=== PATIENT | male | born 1940 | race Caucasian/White ===

== ENCOUNTER 2018-08-29 12:36 | Inpatient (IN) | payer MEDICARE, OTHER ==
[2018-08-29] MEDS ORDERED: Sodium Chloride 0.9% 1,000 ML IV SCH ×2 (12:45→15:15)
[2018-08-29 12:55] VITALS: BMI 27.6
[2018-08-29 12:57] LABS: BASO # 0.1 K/uL (0.0-0.2); BASO % 0.6 % (0.0-2.0); EOS % 0.2 % (0.0-4.0); LYMPH # 1.1 K/uL (1.0-4.3); LYMPH % 8.4 % (20.0-40.0); MEAN CELL VOLUME 90.9 fL (80.0-94.0); MEAN CORPUSCULAR HEMOGLOBIN 30.1 pg (27.0-31.0); MEAN CORPUSCULAR HGB CONC 33.1 g/dL (33.0-37.0); MEAN PLATELET VOLUME 8.2 fL (7.2-11.7); MONO # 1.7 K/uL (0.0-0.8); MONO % 12.3 % (0.0-10.0); NEUT # 10.7 K/uL (1.8-7.0); NEUT % 78.5 % (50.0-75.0); PLATELET COUNT 254 K/uL (130-400); RBC 3.98 Mil/uL (4.40-5.90); WHITE BLOOD COUNT 13.7 K/uL (4.8-10.8)
[2018-08-29] MEDS ORDERED: Iodixanol 320 MG/ML 100 ML BOTTLE IV ONE (13:01)
[2018-08-29 13:06] LABS: INR 1.2; PROTHROMBIN TIME 12.8 SECONDS (9.7-12.2)
--- NOTE | 2018-08-29 13:07 | CT ---
Date of service: 08/29/2018 PROCEDURE: CT HEAD WITHOUT CONTRAST. HISTORY: Code Stroke COMPARISON: None available. TECHNIQUE: Axial computed tomography images were obtained through the head/brain without intravenous contrast. Radiation dose: Total exam DLP = 1142.28 mGy-cm. This CT exam was performed using one or more of the following dose reduction techniques: Automated exposure control, adjustment of the mA and/or kV according to patient size, and/or use of iterative reconstruction technique. FINDINGS: HEMORRHAGE: No intracranial hemorrhage. 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 There is no mass, mass effect or abnormal extra-axial fluid collection. The midline sagittal structures are normal.There are coarse atherosclerotic calcifications in the cavernous carotid and vertebral arteries. VENTRICLES: There is moderate age-related global parenchymal volume loss and proportionate enlargement of the ventricles and cortical sulci. CALVARIUM: There is no calvarial fracture or extracranial soft tissue swelling. PARANASAL SINUSES: There is a retention cyst/polyp in the left maxillary sinus. The remaining included paranasal sinuses are clear. MASTOID AIR CELLS: Predominantly clear. OTHER FINDINGS: None. IMPRESSION: No acute intracranial abnormality.If there is a persistent focal neurologic deficit and an ongoing clinical concern for acute infarction, an MRI of the brain without intravenous contrast would be a more sensitive modality for evaluation of hyperacute/acute ischemic infarction. 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 Important findings were discussed with Dr. Jb Gimenez in the ER on 08/29/2018 at 1:00 p.m.
[2018-08-29 13:10] LABS: ALB/GLOB RATIO 1.2 (1.0-2.1); ALBUMIN 4.3 g/dL (3.5-5.0); ALT/SGPT 13 U/L (21-72); AST/SGOT 16 U/L (17-59); BLOOD UREA NITROGEN 23 mg/dL (9-20); CALCIUM 9.2 mg/dl (8.6-10.4); GFR NON-AFRICAN AMERICAN > 60; HDL CHOLESTEROL 45 mg/dL (30-70)
[2018-08-29 13:20] LABS: BANDS 1 % (0-2); LDL CHOLESTEROL 145 mg/dL (0-129); LYMPHOCYTE 10 % (20-40); MONOCYTE 12 % (0-10); NEUTROPHIL 77 % (50-75); PLATELET ESTIMATE NORMAL (NORMAL); TOTAL CELLS COUNTED 100
[2018-08-29 13:21] LABS: LARGE PLATELETS PRESENT
[2018-08-29] MEDS ORDERED: Sodium Chloride 0.9% 1,000 ML ONE (13:21)
--- NOTE | 2018-08-29 13:53 | CT ---
Date of service: 08/29/2018 PROCEDURE: CTA HEAD AND NECK WITH CONTRAST HISTORY: Weakness COMPARISON: None available. TECHNIQUE: Initial noncontrast head CT was performed. Subsequently, CT angiogram of the head and neck were performed after the intravenous administration of 80 mL of Omnipaque 350. Contiguous 1.5mm thick images were obtained in the axial plane of the neck. 2-D coronal and sagittal MPR images were obtained. Imaging postprocessing was performed with 3-D images also obtained. A delayed contrast head CT was also obtained. This CT exam was performed using one or more of the following dose reduction techniques: Automated exposure control, adjustment of the mA and/or kV according to patient size, and/or use of iterative reconstruction technique. Contrast dose: 100 mL Visipaque 320 Radiation dose: Total exam DLP = 718.48 mGy-cm. FINDINGS: HEAD: There are coarse atherosclerotic calcifications in the cavernous carotid segments of the internal carotid arteries and the supraclinoid segments. Right: The intracranial internal carotid artery, and anterior and middle cerebral arteries are widely patent. There is early bifurcation of the M1 segment. Left: The intracranial internal carotid artery, and anterior and middle cerebral arteries are widely patent. Posterior circulation: The visualized intracranial vertebral arteries, basilar artery and posterior cerebral arteries are widely patent. There is no endoluminal filling defect to suggest thrombus. There is no intracranial saccular aneurysm. NECK: There is a three vessel aortic arch. There is no stenosis at the origins of the great vessels at the level of the aortic arch. There are mild atherosclerotic calcifications in the proximal left internal carotid artery and at the right external carotid artery origin. Right Carotid: On the right, the common carotid, internal carotid and external carotid arteries are widely patent. There is no hemodynamically significant stenosis in the internal carotid artery by NASCET criteria. Left Carotid: On the left, the common carotid, internal carotid and external carotid arteries are widely patent. There is no hemodynamically significant stenosis in the internal carotid artery by NASCET criteria. The vertebral arteries are widely patent. The left vertebral artery is hypoplastic, an anatomic variant. The visualized soft tissues of the neck are normal. The visualized brain and cervical spine are within normal limits. The lung apices are clear. IMPRESSION: 1. No evidence of endoluminal thrombus,occlusion or definite significant stenosis in the intracranial arteries. 2. No evidence of hemodynamically significant stenosis in the internal carotid arteries. 3. Patent bilateral vertebral arteries.
--- NOTE | 2018-08-29 13:54 | RAD ---
Date of service: 08/29/2018 HISTORY: Code Stroke COMPARISON: No prior. FINDINGS: LUNGS: There are low lung volumes. The lungs are clear. PLEURA: No pleural effusions or pneumothorax. CARDIOVASCULAR: The heart is normal in size. No aortic atherosclerotic calcifications present. OSSEOUS STRUCTURES: Within normal limits for the patient's age. VISUALIZED UPPER ABDOMEN: Normal. OTHER FINDINGS: None. IMPRESSION: No active pulmonary disease.
[2018-08-29] MEDS ORDERED: Aspirin 325 mg EC Tablets PO STA (13:57)
--- NOTE | 2018-08-29 13:59 | C.PDOC ---
Time Seen by Provider: 08/29/18 12:45 Chief Complaint (Nursing): Weakness/Neurological Deficit Past Medical History Vital Signs: Last Vital Signs Temp 97.6 F 08/29/18 12:42 Pulse 82 08/29/18 13:52 Resp 24 08/29/18 13:52 BP 125/62 08/29/18 13:52 Pulse Ox 99 08/29/18 13:52 - Medical History PMH: Alzheimer's Disease, Dementia - Social History Hx Alcohol Use: No Hx Substance Use: No - Immunization History Hx Tetanus Toxoid Vaccination: No Hx Influenza Vaccination: No Hx Pneumococcal Vaccination: No ED Course And Treatment - Laboratory Results Result Diagrams: 08/29/18 12:50 08/29/18 12:50 Lab Results: PT 12.8 SECONDS (9.7-12.2) H 08/29/18 12:50 INR 1.2 08/29/18 12:50 APTT 31 SECONDS (21-34) 08/29/18 12:50 Troponin I 0.1100 ng/mL (0.00-0.120) 08/29/18 12:50 Total Bilirubin 0.9 mg/dL (0.2-1.3) 08/29/18 12:50 AST 16 U/L (17-59) L 08/29/18 12:50 ALT 13 U/L (21-72) L 08/29/18 12:50 Alkaline Phosphatase 84 U/L (38-126) 08/29/18 12:50 Total Protein 7.7 g/dL (6.3-8.3) 08/29/18 12:50 Albumin 4.3 g/dL (3.5-5.0) 08/29/18 12:50 Globulin 3.5 gm/dL (2.2-3.9) 08/29/18 12:50 Albumin/Globulin Ratio 1.2 (1.0-2.1) 08/29/18 12:50 O2 Sat by Pulse Oximetry: 99 Disposition Discussed With : Holli Mesa Doctor Will See Patient In The: Hospital Counseled Patient/Family Regarding: Studies Performed, Diagnosis - Disposition Disposition: HOSPITALIZED Disposition Time: 13:59 Condition: FAIR Forms: [facility] (Azeri) - Clinical Impression Clinical Impression: CVA (cerebral vascular accident)
--- NOTE | 2018-08-29 14:00 | C.PDOC ---
History Of Present Illness 77 y/o male brought in by EMS for evaluation of right-sided weakness. Code stroke was called upon arrival. Patient has PMHx of dementia and is unable to contribute to history. As per patient went to bed at 1030 last night. Aroun d 3:00am attempted to wake patient but was unable to. At 1030am patient was unable to get out of bed, and was moved from bed to chair by son. At that time, family noted apparent right sided weakness and EMS was called. No other complaints offered. Time Seen by Provider: 08/29/18 12:45 Chief Complaint (Nursing): Weakness/Neurological Deficit History Per: Patient History/Exam Limitations: clinical condition (dementia) Onset/Duration Of Symptoms: Hrs (> 12 hours) Current Symptoms Are (Timing): Still Present Additional History Per: EMS, Family - Symptoms Of CVA Character Of Deficits: Right: Weakness Past Medical History Reviewed: Historical Data, Nursing Documentation, Vital Signs Vital Signs: Last Vital Signs Temp 97.6 F 08/29/18 12:42 Pulse 82 08/29/18 13:52 Resp 24 08/29/18 13:52 BP 125/62 08/29/18 13:52 Pulse Ox 99 08/29/18 13:52 - Medical History PMH: Alzheimer's Disease, Dementia Family History: States: Unknown Family Hx - Social History Hx Alcohol Use: No Hx Substance Use: No - Immunization History Hx Tetanus Toxoid Vaccination: No Hx Influenza Vaccination: No Hx Pneumococcal Vaccination: No Review Of Systems Review Of Systems: ROS cannot be obtained secondary to pt's inabilty to answer questions. Neurological: Positive for: Weakness (right-sided) Physical Exam - Physical Exam Appears: No Acute Distress, Confused, Other (Verbal, responding to some questions) Skin: Warm, Dry Head: Atraumatic, Normacephalic Eye(s): bilateral: Normal Inspection, PERRL, EOMI Neck: Normal ROM Chest: Symmetrical Cardiovascular: Rhythm Regular, No Murmur Respiratory: Normal Breath Sounds, No Accessory Muscle Use, No Rhonchi, No Wheezing Gastrointestinal/Abdominal: Soft, No Tenderness, No Distention Extremity: Right: Other (Right leg weakness, able to move the right leg with g ravity), Bilateral: Atraumatic Pulses: Left Dorsalis Pedis: Normal, Right Dorsalis Pedis: Normal Neurological/Psych: Other (AAOx1) ED Course And Treatment - Laboratory Results Result Diagrams: 08/29/18 12:50 08/29/18 12:50 Lab Results: PT 12.8 SECONDS (9.7-12.2) H 08/29/18 12:50 INR 1.2 08/29/18 12:50 APTT 31 SECONDS (21-34) 08/29/18 12:50 Troponin I 0.1100 ng/mL (0.00-0.120) 08/29/18 12:50 Total Bilirubin 0.9 mg/dL (0.2-1.3) 08/29/18 12:50 AST 16 U/L (17-59) L 08/29/18 12:50 ALT 13 U/L (21-72) L 08/29/18 12:50 Alkaline Phosphatase 84 U/L (38-126) 08/29/18 12:50 Total Protein 7.7 g/dL (6.3-8.3) 08/29/18 12:50 Albumin 4.3 g/dL (3.5-5.0) 08/29/18 12:50 Globulin 3.5 gm/dL (2.2-3.9) 08/29/18 12:50 Albumin/Globulin Ratio 1.2 (1.0-2.1) 08/29/18 12:50 ECG: Interpreted By Me ECG Rhythm: Sinus Rhythm Interpretation Of ECG: Q wave in leads 3 and avF, no ST or T wave abnormalities Rate From EC O2 Sat by Pulse Oximetry: 99 (RA) Pulse Ox Interpretation: Normal - CT Scan/US Head CT Other Rad Studies (CT/US): Read By Radiologist, Radiology Report Reviewed CT/US Interpretation: Accession No. : [id number]. Patient Name / ID : PARAMJIT MERLOS / [id number]. Exam Date : 08/29/2018 12:49:44 ( Approved ). Study Comment : Sex / Age : M / 77Y. Creator : Shannan Pabon. Dictator : Colleen Fernandez MD. Last Model Maker : [employer]sembl[employer] Developer Prover : Colleen Fernandez MD. Approver2 : Report Date : 08/29/2018 12:54:57. My Comment : . Date of service: 08/29/2018. PROCEDURE: CT HEAD WITHOUT CONTRAST. HISTORY: Code Stroke. COMPARISON: None available. TECHNIQUE: Axial computed tomography images were obtained through the head/brain without intravenous contrast. Radiation dose: Total exam DLP = 1142.28 mGy-cm. This CT exam was performed using one or more of the following dose reduction techniques: Automated exposure control, adjustment of the mA and/or kV according to patient size, and/or use of iterative reconstruction technique. FINDINGS: HEMORRHAGE: No intracranial hemorrhage. 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 There is no mass, mass effect or abnormal extra-axial fluid collection. The midline sagittal structures are normal.There are coarse atherosclerotic calcifications in the cavernous carotid and vertebral arteries. VENTRICLES: There is moderate age-related global parenchymal volume loss and proportionate enlargement of the ventricles and cortical sulci. CALVARIUM: There is no calvarial fracture or extracranial soft tissue swelling. PARANASAL SINUSES: There is a retention cyst/polyp in the left maxillary sinus. The remaining included paranasal sinuses are clear. MASTOID AIR CELLS: Predominantly clear. OTHER FINDINGS: None. IMPRESSION: No acute intracranial abnormality.If there is a persistent focal neurologic deficit and an ongoing clinical concern for acute infarction, an MRI of the brain without intravenous contrast would be a more sensitive modality for evaluation of hyperacute/acute ischemic infarction. 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 Important findings were discussed with Dr. Jb Gimenez in the ER on 08/29/2018 at. 1:00 p.m. NIHSS Stroke Scale 2 - Date/Time Evaluation Performed Date Performed: 08/29/18 Time Performed: 12:45 When Was NIHSS Performed: Code Stroke - How Severe is the Stroke Level of Consciousness: 0=Alert LOC to Questions: 0=Both comments correct LOC to commands: 0=Obeys both correctly Visual: 0=No visual loss Facial: 0=Normal Motor Arm - Left: 0=No drift Motor Arm - Right: 0=No drift Motor Leg - Left: 0=No drift Motor Leg - Right: 2=Falls before 5 sec Limb Ataxia: 0=Absent Sensory: 0=Normal Best Language: 0=No aphasia Dysarthia: 0=Normal articulation Extinction & Inattention (Neglect): 0=Normal, no object rTPA Inclusion/Exclusion - Refusal of Treatment Patient Refused Treatment: No - Inclusion Criteria for Altepase Patient is 18 years or Older: Yes The Clinical Diagnosis of Ischemic Stroke That is Causing a Potentially Disabling Neurological Deficit: Yes Time of Onset is Well Established to be Less Than 270 Minute Before Treatment Would Begin: No Risk/Benefit Discussed With Patient/Family Member Present: No Medical Decision Making Medical Decision Making: Patient required my immediate attention and was seen on arrival. Impression: CVA NIH SS: [address] Crawford, states pt is outside of window for TPA. Initial Plan: CT Head, CTA, labs, EKG, and CXR ordered. Patient given 325 mg Aspirin and started on IV fluids. Disposition Discussed With : Holli Mesa Doctor Will See Patient In The: Hospital Counseled Patient/Family Regarding: Diagnosis - Disposition Disposition: HOSPITALIZED Disposition Time: 13:58 Condition: FAIR - POA Present On Arrival: None Core Measure Indicators: Code Stroke - Clinical Impression Clinical Impression: CVA (cerebral vascular accident) - Scribe Statement The provider has reviewed the documentation as recorded by the Tiffanie Banks Provider Attestation: All medical record entries made by the Saraiibantonio were at my direction and personally dictated by me. I have reviewed the chart and agree that the record accurately reflects my personal performance of the history, physical exam, medical decision making, and the department course for this patient. I have also personally directed, reviewed, and agree with the discharge instructions and disposition.
[2018-08-29] MEDS ORDERED: Aspirin 325 mg EC Tablets PO ONE (14:16)
[2018-08-29] MEDS ORDERED: (Novolin R) Insulin Human Regular 100 units/ml vial IVP ONE (14:29)
--- NOTE | 2018-08-29 14:53 | CP.PCM.HP ---
History of Present Illness - History of Present Illness History of Present Illness: Patient is a 77 year old male with a past medical history of diabetes and Alzheimer dementia, who presents to the hospital with right sided weakness, slurred speech and right facial droop. The history is provided by and daughter who are at bedside due to patients dementia. Per the family, the patient had difficulty sleeping last night, then the noticed slurred speech and facial droop around 6am this morning. The tried to get the patient out of bed at 930am and the patient wasn't able to get out of bed due to right sided arm and leg weakness. Per the , the patients arm movement improved around 1030 am and after that is when they came to the hospital. Review of systems limited due to patients dementia. Patient is oriented to person, but not place or time. PMHx: DM, Alzheimer dementia SurgHx: none FamHx: Brother-[place] (in his 40s) SocHx: former smoker (quit 30 years ago, formerly smoked 1 pk/day for 15 years); rare etoh use (family occasions); denies drug use; lives with his , Tonia. Daughter: Noni ([phone]); Came from [place] one week ago. Allergies: NKDA Medications: Metformin 1000mg PO daily, Memantine 10mg daily, Donepizil 10mg daily, lexapro 20mg po daily, somazina 500mg daily; per the pharmacy, patient was prescribed plavix 75mg po daily yesterday by Dr Gallegos. (Per the family, t he patient previously took plavix daily but stopped it many months ago) Present on Admission - Present on Admission Any Indicators Present on Admission: Yes History of Uncontrolled Diabetes: Yes Review of Systems - Review of Systems Systems not reviewed;Unavailable: Dementia - EENT Eyes: As Per HPI - Cardiovascular Cardiovascular: As Per HPI - Respiratory Respiratory: As Per HPI - Gastrointestinal Gastrointestinal: As Per HPI - Genitourinary Genitourinary: As Per HPI - Reproductive: Male Reproductive:Male: As Per HPI - Musculoskeletal Musculoskeletal: As Per HPI - Integumentary Integumentary: As Per HPI Past Patient History - Infectious Disease Hx of Infectious Diseases: None - Past Social History Smoking Status: Unknown If Ever Smoked - NEUROLOGICAL Hx Alzheimer's Disease: Yes Hx Dementia: Yes - ENDOCRINE/METABOLIC Hx Diabetes Mellitus Type 2: Yes - PSYCHIATRIC Hx Substance Use: No - ANESTHESIA Hx Anesthesia: No Meds Allergies/Adverse Reactions: Allergies Allergy/AdvReac Type Severity Reaction Status Date / Time No Known Allergies Allergy Verified 08/29/18 12:38 Physical Exam - Constitutional Appears: No Acute Distress - Head Exam Head Exam: ATRAUMATIC - Eye Exam Eye Exam: EOMI Pupil Exam: Miosis - ENT Exam ENT Exam: Mucous Membranes Dry - Respiratory Exam Respiratory Exam: Decreased Breath Sounds, NORMAL BREATHING PATTERN. absent: Clear to Auscultation Bilateral, Rhonchi, Wheezes - Cardiovascular Exam Cardiovascular Exam: REGULAR RHYTHM, +S1, +S2 - GI/Abdominal Exam GI & Abdominal Exam: Normal Bowel Sounds, Soft. absent: Distended, Firm, Guarding - Extremities Exam Extremities exam: Positive for: pedal pulses present (diminished). Negative for: pedal edema, tenderness - Neurological Exam Additional comments: Patient unable to follow all commands due to dementia and lack of concentration. 5/5 remotely operated vehicle strength, upper and lower extremity strength. Negative Babinski sign. Sensation intact bilaterally. Slight right sided facial droop. - Psychiatric Exam Psychiatric exam: Normal Mood - Skin Skin Exam: Dry, Normal Color, Warm Results - Vital Signs Recent Vital Signs: Last Vital Signs Temp 97.6 F 08/29/18 12:42 Pulse 82 08/29/18 13:52 Resp 24 08/29/18 13:52 BP 125/62 08/29/18 13:52 Pulse Ox 99 08/29/18 14:08 - Labs Result Diagrams: 08/29/18 12:50 08/29/18 12:50 Labs: Laboratory Results - last 24 hr 08/29/18 08/29/18 08/29/18 12:40 12:50 12:50 WBC 13.7 H RBC 3.98 L Hgb 12.0 Hct 36.2 MCV 90.9 MCH 30.1 MCHC 33.1 RDW 14.0 Plt Count 254 MPV 8.2 Neut % (Auto) 78.5 H Lymph % (Auto) 8.4 L Pope % (Auto) 12.3 H Eos % (Auto) 0.2 Baso % (Auto) 0.6 Neut # (Auto) 10.7 H Lymph # (Auto) 1.1 Pope # (Auto) 1.7 H Eos # (Auto) 0.0 Baso # (Auto) 0.1 Neutrophils % (Manual) 77 H Band Neutrophils % 1 Lymphocytes % (Manual) 10 L Monocytes % (Manual) 12 H Eosinophils % (Manual) TEST NOT PERFORMED Platelet Estimate Normal Large Platelets Present RBC Morphology Normal PT 12.8 H INR 1.2 APTT 31 Sodium Potassium Chloride Carbon Dioxide Anion Gap BUN Creatinine Est GFR ( Amer) Est GFR (Non-Af Amer) POC Glucose (mg/dL) 346 H Random Glucose Hemoglobin A1c Calcium Total Bilirubin AST ALT Alkaline Phosphatase Troponin I Total Protein Albumin Globulin Albumin/Globulin Ratio Triglycerides Cholesterol LDL Cholesterol Direct HDL Cholesterol Blood Type Antibody Screen 08/29/18 08/29/18 08/29/18 12:50 12:50 12:50 WBC RBC Hgb Hct MCV MCH MCHC RDW Plt Count MPV Neut % (Auto) Lymph % (Auto) Pope % (Auto) Eos % (Auto) Baso % (Auto) Neut # (Auto) Lymph # (Auto) Pope # (Auto) Eos # (Auto) Baso # (Auto) Neutrophils % (Manual) Band Neutrophils % Lymphocytes % (Manual) Monocytes % (Manual) Eosinophils % (Manual) Platelet Estimate Large Platelets RBC Morphology PT INR APTT Sodium 136 Potassium 3.9 Chloride 97 L Carbon Dioxide 30 Anion Gap 14 BUN 23 H Creatinine 0.9 Est GFR ( Amer) > 60 Est GFR (Non-Af Amer) > 60 POC Glucose (mg/dL) Random Glucose 322 H Hemoglobin A1c 8.0 H Calcium 9.2 Total Bilirubin 0.9 AST 16 L ALT 13 L Alkaline Phosphatase 84 Troponin I 0.1100 Total Protein 7.7 Albumin 4.3 Globulin 3.5 Albumin/Globulin Ratio 1.2 Triglycerides 135 Cholesterol 208 H LDL Cholesterol Direct 145 H HDL Cholesterol 45 Blood Type O POSITIVE Antibody Screen Negative Assessment & Plan - Assessment and Plan (Free Text) Plan: 77 year old male with a history of DM and Alzheimer's dementia, who presents to the hospital with complaints of right sided weakness, slurred speech, and facial droop. CVA vs. TIA - Right sided weakness has resolved since arriving in ED; mild facial droop still present - In ED, was given asa 325mg PO stat. Patient was not a TPA candidate. - Neurology consulted, Dr. Crawford. Help appreciated - EKG: NSR@84; qwaves in lead 3 and AVF, no ST elevations/depressions - CXR: no acute pathology - Head CT w/o contrast: No acute intracranial abnormality.If there is a persistent focal neurologic deficit and an ongoing clinical concern for acute infarction, an MRI of the brain without intravenous contrast would be a more sensitive modality for evaluation of hyperacute/acute ischemic infarction. 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 - Head/Neck CTA: No evidence of endoluminal thrombus,occlusion or definite significant stenosis in the intracranial arteries. No evidence of hemodynamically significant stenosis in the internal carotid arteries. Patent bilateral vertebral arteries. - Brain MRI: f/u - EEG: f/u - A1c: 8.0 - Lipid panel: TG 135, Chol 208, LDL 145, HDL 45 - TSH/Free T4: f/u - Medications: * Aspirin 81mg PO daily * Crestor 20mg PO HS DM - Accuchecks - Hypoglycemic protocol - A1c: 8.0 - Hold home medication: Metformin 1000mg PO daily - ISS- medium Alzheimers dementia - Home medications: Memantidine 10mg PO daily, Donepizil 10mg PO daily, Somazina 500mg PO daily Prophylaxis - DVT: Heparin 5000u SC Q12, SCDs - GI: not indicated - NPO - Swallow eval:f/u - PT/OT Case discussed with Dr. Hanna Kellogg, PGY2
--- NOTE | 2018-08-29 15:55 | CP.PCM.CON ---
History of Present Illness - History of Present Illness History of Present Illness: Neurology Consultation Note: Consult requested by Dr. Gimenez Mr. Ritchie is a 77-year-old man with a past medical history of DM and d ementia, who was found to have right side weakness and speech difficulty this morning. He was last at his baseline last night. CT head did not show acute findings, but there was a chronic left caudate lacunar infarct. CTA of the head/neck did not show any large vessel occlusion. The patient was not a candidate for IV tPA due to being outside the time window. When I saw the patient, he was improving, according to his family. He was conversant and moving his right upper extremity, but still had some weakness in his right lower extremity. Review of Systems - Review of Systems Systems not reviewed;Unavailable: Dementia Past Patient History - Infectious Disease Hx of Infectious Diseases: None - Past Social History Smoking Status: Unknown If Ever Smoked - NEUROLOGICAL Hx Alzheimer's Disease: Yes Hx Dementia: Yes - ENDOCRINE/METABOLIC Hx Diabetes Mellitus Type 2: Yes - PSYCHIATRIC Hx Substance Use: No - ANESTHESIA Hx Anesthesia: No Meds Allergies/Adverse Reactions: Allergies Allergy/AdvReac Type Severity Reaction Status Date / Time No Known Allergies Allergy Verified 08/29/18 12:38 - Medications Medications: Current Medications Aspirin (Aspirin Chewable) 81 mg PO DAILY [facility] Heparin Sodium (Porcine) (Heparin) 5,000 units SC Q12 [facility] Sodium Chloride (Sodium Chloride 0.9%) 1,000 mls @ 75 mls/hr IV .[id number] [facility] Insulin Human Regular (Novolin R) 0 unit SC ACHS [facility]; Protocol Rosuvastatin Calcium (Crestor) 20 mg PO HS [facility] Physical Exam - Constitutional Appears: Well, Cachectic - Head Exam Head Exam: ATRAUMATIC, NORMAL INSPECTION, NORMOCEPHALIC - Eye Exam Eye Exam: EOMI, Normal appearance, PERRL Pupil Exam: NORMAL ACCOMODATION, PERRL - ENT Exam ENT Exam: Mucous Membranes Moist, Normal Exam - Neck Exam Neck exam: Positive for: Normal Inspection - Respiratory Exam Respiratory Exam: Clear to Auscultation Bilateral, NORMAL BREATHING PATTERN - Cardiovascular Exam Cardiovascular Exam: REGULAR RHYTHM, +S1, +S2 - GI/Abdominal Exam GI & Abdominal Exam: Normal Bowel Sounds, Soft. absent: Tenderness - Extremities Exam Extremities exam: Positive for: normal inspection - Back Exam Back exam: NORMAL INSPECTION - Neurological Exam Neurological exam: Alert, Altered, CN II-XII Intact, Reflexes Normal Additional comments: Conversant, but confused due to dementia (at baseline) Unable to ambulate, RLE weakness 3/5 in strength. Otherwise, upper extremities are symmetrical. Sensation is intact throughout. No facial droop noted. NIHSS = 4 - Psychiatric Exam Psychiatric exam: Normal Affect, Normal Mood - Skin Skin Exam: Dry, Intact, Normal Color, Warm Results - Vital Signs Recent Vital Signs: Last Vital Signs Temp 97.6 F 08/29/18 12:42 Pulse 77 08/29/18 14:57 Resp 20 08/29/18 14:57 BP 128/66 08/29/18 14:57 Pulse Ox 99 08/29/18 15:31 - Labs Result Diagrams: 08/29/18 12:50 08/29/18 12:50 Labs: Laboratory Results - last 24 hr 08/29/18 08/29/18 08/29/18 12:40 12:50 12:50 WBC 13.7 H RBC 3.98 L Hgb 12.0 Hct 36.2 MCV 90.9 MCH 30.1 MCHC 33.1 RDW 14.0 Plt Count 254 MPV 8.2 Neut % (Auto) 78.5 H Lymph % (Auto) 8.4 L Long % (Auto) 12.3 H Eos % (Auto) 0.2 Baso % (Auto) 0.6 Neut # (Auto) 10.7 H Lymph # (Auto) 1.1 Long # (Auto) 1.7 H Eos # (Auto) 0.0 Baso # (Auto) 0.1 Neutrophils % (Manual) 77 H Band Neutrophils % 1 Lymphocytes % (Manual) 10 L Monocytes % (Manual) 12 H Eosinophils % (Manual) TEST NOT PERFORMED Platelet Estimate Normal Large Platelets Present RBC Morphology Normal PT 12.8 H INR 1.2 APTT 31 Sodium Potassium Chloride Carbon Dioxide Anion Gap BUN Creatinine Est GFR ( Amer) Est GFR (Non-Af Amer) POC Glucose (mg/dL) 346 H Random Glucose Hemoglobin A1c Calcium Total Bilirubin AST ALT Alkaline Phosphatase Troponin I Total Protein Albumin Globulin Albumin/Globulin Ratio Triglycerides Cholesterol LDL Cholesterol Direct HDL Cholesterol Blood Type Antibody Screen 08/29/18 08/29/18 08/29/18 12:50 12:50 12:50 WBC RBC Hgb Hct MCV MCH MCHC RDW Plt Count MPV Neut % (Auto) Lymph % (Auto) Long % (Auto) Eos % (Auto) Baso % (Auto) Neut # (Auto) Lymph # (Auto) Long # (Auto) Eos # (Auto) Baso # (Auto) Neutrophils % (Manual) Band Neutrophils % Lymphocytes % (Manual) Monocytes % (Manual) Eosinophils % (Manual) Platelet Estimate Large Platelets RBC Morphology PT INR APTT Sodium 136 Potassium 3.9 Chloride 97 L Carbon Dioxide 30 Anion Gap 14 BUN 23 H Creatinine 0.9 Est GFR ( Amer) > 60 Est GFR (Non-Af Amer) > 60 POC Glucose (mg/dL) Random Glucose 322 H Hemoglobin A1c 8.0 H Calcium 9.2 Total Bilirubin 0.9 AST 16 L ALT 13 L Alkaline Phosphatase 84 Troponin I 0.1100 Total Protein 7.7 Albumin 4.3 Globulin 3.5 Albumin/Globulin Ratio 1.2 Triglycerides 135 Cholesterol 208 H LDL Cholesterol Direct 145 H HDL Cholesterol 45 Blood Type O POSITIVE Antibody Screen Negative Assessment & Plan (1) CVA (cerebral vascular accident) Assessment and Plan: He may have had a new stroke, or could have worsening of the previous stroke (left caudate), or resurgence of symptoms. I recommend the followin. Telemetry 2. MRI brain without contrast 3. Echocardiogram 4. Check Lipid panel, HbA1c, B12, folate, TSH, T3, vitamin D levels 5. Aspirin 81 mg daily 6. Permissive HTN (treat BP higher than 220/110 mm Hg for the next 36 hours) 7. EEG for one hour 8. PT/OT eval and treatment 9. Lipitor 40 mg daily Thank you for this consultation. Status: Acute
[2018-08-29] MEDS: (Novolin R) Insulin Human Regular 100 units/ml vial SC SCH ×2 (16:15→23:31)
[2018-08-29] MEDS ORDERED: (Novolin R) Insulin Human Regular 100 units/ml vial ONE (16:16)
--- NOTE | 2018-08-29 20:21 | CP.PCM.PCO ---
Physician Communication Note - Physician Communication Note Physician Communication Note: see above note
[2018-08-29] MEDS: Piperacill/Tazo 3.375gm in Dex 3.375 GM/50 ML BAG IVPB SCH (23:13)
[2018-08-29] MEDS: Sodium Chloride 0.9% 1,000 ML IV SCH (23:15)
[2018-08-30] MEDS: Piperacill/Tazo 3.375gm in Dex 3.375 GM/50 ML BAG IVPB SCH ×4 (02:50→20:10)
[2018-08-30 04:58] LABS: SQUAMOUS EPITHIAL 1 /hpf (0-5); URINE BILIRUBIN NEGATIVE (NEGATIVE); URINE BLOOD NEGATIVE (NEGATIVE); URINE CLARITY Hazy (Clear); URINE COLOR Yellow (YELLOW); URINE GLUCOSE (UA) 1+ mg/dL (Normal); URINE LEUKOCYTE ESTERASE TRACE Leu/uL (Negative); URINE PROTEIN 2+ mg/dL (NEGATIVE); URINE UROBILINOGEN NORMAL mg/dL (0.2-1.0)
[2018-08-30] MEDS: (Novolin R) Insulin Human Regular 100 units/ml vial SC SCH ×4 (07:56→22:19)
[2018-08-30 08:43] LABS: BASO % 0.1 % (0.0-2.0); EOS # 0.1 K/uL (0.0-0.7); EOS % 0.4 % (0.0-4.0); HEMOGLOBIN 11.2 g/dL (12.0-18.0); LYMPH # 1.2 K/uL (1.0-4.3); MEAN CELL VOLUME 90.9 fL (80.0-94.0); MEAN CORPUSCULAR HEMOGLOBIN 29.9 pg (27.0-31.0); MEAN CORPUSCULAR HGB CONC 32.9 g/dL (33.0-37.0); MEAN PLATELET VOLUME 8.3 fL (7.2-11.7); MONO # 1.6 K/uL (0.0-0.8); MONO % 12.3 % (0.0-10.0); NEUT # 10.1 K/uL (1.8-7.0); NEUT % 78.2 % (50.0-75.0); PLATELET COUNT 234 K/uL (130-400); RBC 3.74 Mil/uL (4.40-5.90); WHITE BLOOD COUNT 12.9 K/uL (4.8-10.8)
[2018-08-30 09:01] LABS: ALB/GLOB RATIO 1.2 (1.0-2.1); ALBUMIN 3.6 g/dL (3.5-5.0); ALT/SGPT 17 U/L (21-72); AST/SGOT 17 U/L (17-59); BLOOD UREA NITROGEN 19 mg/dL (9-20); CALCIUM 8.4 mg/dl (8.6-10.4); GFR NON-AFRICAN AMERICAN > 60
[2018-08-30 10:35] LABS: BANDS 7 % (0-2); LYMPHOCYTE 6 % (20-40); MONOCYTE 12 % (0-10); NEUTROPHIL 72 % (50-75); REACTIVE LYMPHOCYTES 3 % (0-0); TOTAL CELLS COUNTED 100
[2018-08-30 10:36] LABS: ANISOCYTOSIS SLIGHT; PLATELET ESTIMATE NORMAL (NORMAL)
--- NOTE | 2018-08-30 13:00 | CP.PCM.PN ---
Subjective - Date & Time of Evaluation Date of Evaluation: 08/30/18 Time of Evaluation: 12:58 - Subjective Subjective: Lisandro Rai PGY1 Progress Note for Dr. Ferreira Pt was examined at bedside. He reports feeling well. He has no chest pain, hea dache, slurred speech or dysphagia. Objective - Vital Signs/Intake and Output Vital Signs (last 24 hours): Temp Pulse Resp BP Pulse Ox 98.1 F 86 20 138/74 96 08/30/18 07:30 08/30/18 09:39 08/30/18 07:30 08/30/18 07:30 08/30/18 07:30 - Medications Medications: Current Medications Acetaminophen (Tylenol 325mg Tab) 650 mg PO Q6H PRN PRN Reason: Fever >100.4 F Last Admin: 08/29/18 23:12 Dose: 650 mg Aspirin (Aspirin Chewable) 81 mg PO DAILY [facility] Last Admin: 08/30/18 10:25 Dose: 81 mg Donepezil HCl (Aricept) 10 mg PO HS [facility] Last Admin: 08/29/18 23:31 Dose: 10 mg Escitalopram Oxalate (Lexapro) 10 mg PO DAILY [facility] Last Admin: 08/30/18 10:23 Dose: 10 mg Heparin Sodium (Porcine) (Heparin) 5,000 units SC Q12 [facility] Last Admin: 08/30/18 12:30 Dose: 5,000 units Sodium Chloride (Sodium Chloride 0.9%) 1,000 mls @ 100 mls/hr IV .Q10H [facility] Last Admin: 08/29/18 23:15 Dose: 100 mls/hr Piperacillin Sod/Tazobactam Sod (Zosyn 3.375 Gm Iv Premix) 3.375 gm in 50 mls @ 100 mls/hr IVPB Q6H [facility]; Protocol Last Admin: 08/30/18 08:00 Dose: 100 mls/hr Insulin Human Regular (Novolin R) 0 unit SC ACHS [facility]; Protocol Last Admin: 08/30/18 12:29 Dose: 3 u Memantine (Namenda) 10 mg PO DAILY [facility] Last Admin: 08/30/18 10:23 Dose: 10 mg Rosuvastatin Calcium (Crestor) 20 mg PO HS [facility] Last Admin: 08/29/18 23:12 Dose: 20 mg - Labs Labs: 08/30/18 08:31 08/30/18 08:31 PT 12.8 SECONDS (9.7-12.2) H 08/29/18 12:50 INR 1.2 08/29/18 12:50 APTT 31 SECONDS (21-34) 08/29/18 12:50 - Constitutional Appears: Well, No Acute Distress - Head Exam Head Exam: ATRAUMATIC, NORMOCEPHALIC - Eye Exam Eye Exam: EOMI, Normal appearance Pupil Exam: NORMAL ACCOMODATION - ENT Exam ENT Exam: Mucous Membranes Moist - Respiratory Exam Respiratory Exam: Clear to Ausculation Bilateral, NORMAL BREATHING PATTERN. absent: Rales, Rhonchi, Wheezes - Cardiovascular Exam Cardiovascular Exam: REGULAR RHYTHM, +S1, +S2. absent: Gallop, Rubs, Murmur - GI/Abdominal Exam GI & Abdominal Exam: Soft, Normal Bowel Sounds. absent: Distended, Tenderness - Extremities Exam Extremities Exam: Normal Inspection - Neurological Exam Neurological Exam: Alert, Awake, Oriented x3 Neuro motor strength exam: Left Upper Extremity: 5, Right Upper Extremity: 5, Left Lower Extremity: 5, Right Lower Extremity: 5 - Psychiatric Exam Psychiatric exam: Normal Affect, Normal Mood Assessment and Plan - Assessment and Plan (Free Text) Assessment: 77 year old male with a history of DM and Alzheimer's dementia, who presents to the hospital with complaints of right sided weakness, slurred speech, and facial droop. Plan: CVA vs. TIA - Right sided weakness has resolved - In ED, was given asa 325mg PO stat. Patient was not a TPA candidate. - Neurology consulted, Dr. Crawford. Help appreciated - EKG: NSR@84; qwaves in lead 3 and AVF, no ST elevations/depressions - CXR: no acute pathology - rpt CT head: moderate white matter basal nuclei and R cerebellar ischemic changes - Head CT w/o contrast: No acute intracranial abnormality.If there is a persistent focal neurologic deficit and an ongoing clinical concern for acute infarction, an MRI of the brain without intravenous contrast would be a more sensitive modality for evaluation of hyperacute/acute ischemic infarction. 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 - Head/Neck CTA: No evidence of endoluminal thrombus,occlusion or definite significant stenosis in the intracranial arteries. No evidence of hemodynamically significant stenosis in the internal carotid arteries. Patent bilateral vertebral arteries. - Brain MRI: f/u - EEG: f/u - A1c: 8.0 - Lipid panel: TG 135, Chol 208, LDL 145, HDL 45 - TSH low - Free T4 wnl - Medications: * Aspirin 81mg PO daily * Crestor 20mg PO HS - Neuro consulted, Dr. Crawford - recs appreciated Fever resolved - CXR: no infiltrates - UA: negative - zosyn 3.375g IV q6h - tylenol PRN - f/u BCx, UCx - f/u rpt CXR 09/01/18 DM - Accuchecks - Hypoglycemic protocol - A1c: 8.0 - Hold home medication: Metformin 1000mg PO daily - ISS- medium Alzheimers dementia - Home medications: Memantidine 10mg PO daily, Donepizil 10mg PO daily, Somazina 500mg PO daily, Lexapro 10mg PO daily Prophylaxis - DVT: Heparin 5000u SC Q12, SCDs - GI: not indicated - PT/OT HHD Case discussed with Dr. Ferreira
--- NOTE | 2018-08-30 14:55 | CT ---
Date of service: 08/30/2018 PROCEDURE: CT HEAD WITHOUT CONTRAST. HISTORY: Code stroke COMPARISON: Comparison made with prior CT scan of the brain and CTA brain both dated 08/29/2018. correlation also made with concurrent MRI of the brain 08/30/2018. TECHNIQUE: Axial computed tomography images were obtained through the head/brain without intravenous contrast. Radiation dose: Total exam DLP = 1101.28 mGy-cm. This CT exam was performed using one or more of the following dose reduction techniques: Automated exposure control, adjustment of the mA and/or kV according to patient size, and/or use of iterative reconstruction technique. FINDINGS: HEMORRHAGE: No acute parenchymal, subarachnoid or extra-axial hemorrhage. BRAIN: Mild chronic periventricular white matter ischemic changes seen extending peripherally into the deep and subcortical white matter both cerebral hemispheres. There also scattered more discrete chronic appearing deep and subcortical white matter as well as bilateral basal nuclei and right cerebellar lacunar type infarcts. Note that the possibility of a small hyperacute infarct cannot be excluded on this exam. Clinical correlation recommended. Moderate generalized volume loss. Moderate vascular calcifications both carotid siphons VENTRICLES: No obstructive hydrocephalus. CALVARIUM: No acute calvarial fractures. Small right frontal scalp lipoma again noted PARANASAL SINUSES: Unremarkable as visualized. No significant inflammatory changes. Mild mucosal thickening noted within the ethmoid air complex and right maxillary antrum. Questionable antrostomy defect versus prominent accessory ostia. MASTOID AIR CELLS: Unremarkable as visualized. No inflammatory changes. OTHER FINDINGS: Changes of bilateral cataract surgery again noted IMPRESSION: No acute intracranial hemorrhage. Moderate chronic white matter basal nuclei and right cerebellar ischemic changes. Note that the possibility of a small hyperacute infarct not excluded. Moderate atrophy.
[2018-08-30] MEDS: Sodium Chloride 0.9% 1,000 ML IV SCH (15:30)
--- NOTE | 2018-08-30 17:56 | MRI ---
Date of service: 08/30/2018 PROCEDURE: MRI BRAIN WITHOUT CONTRAST HISTORY: CVA versus TIA COMPARISON: Comparison made with concurrent CT scan brain. TECHNIQUE: Multiplanar, multisequence MR images of the brain were obtained without intravenous contrast enhancement. FINDINGS: HEMORRHAGE: No acute parenchymal, subarachnoid or extra-axial hemorrhage. No evidence of hemosiderin deposition is identified on gradient echo weighted sequence. DWI: No evidence of an acute or early subacute infarction seen on diffusion imaging.. BRAIN PARENCHYMA: Moderate diffuse/confluent chronic periventricular white matter ischemic changes extending peripherally into the deep and subcortical white matter both cerebral hemispheres seen to better advantage on this study as compared to CT scan. In addition, there are multiple more discrete chronic appearing infarcts scattered about the deep and subcortical white matter as well as both basal nuclei and the right cerebellum. Minor chronic appearing brainstem ischemic changes are also felt to be present. None of these findings exhibit restricted diffusion however. Moderate generalized volume loss. VENTRICLES: No obstructive hydrocephalus. CRANIUM: Unremarkable. ORBITS: Changes of bilateral cataract surgery again noted. PARANASAL SINUSES/MASTOIDS: Small focal area polypoid like mucosal thickening and or mucous retention cyst floor left maxillary antrum. VASCULAR SYSTEM: Visualized major vascular flow voids at skull base patent. OTHER FINDINGS: None. IMPRESSION: Moderate diffuse/confluent chronic periventricular white matter ischemic changes extending peripherally into the deep and subcortical white matter both cerebral hemispheres seen to better advantage on this study as compared to CT scan. In addition, there are multiple more discrete chronic appearing infarcts scattered about the deep and subcortical white matter as well as both basal nuclei and the right cerebellum. Minor chronic appearing brainstem ischemic changes are also felt to be present. None of these findings exhibit restricted diffusion however. Moderate generalized volume loss.
[2018-08-30 19:01] LABS: FOLATE 7.9 ng/mL
[2018-08-31] MEDS: Piperacill/Tazo 3.375gm in Dex 3.375 GM/50 ML BAG IVPB SCH ×4 (01:41→20:16)
[2018-08-31] MEDS: Sodium Chloride 0.9% 1,000 ML IV SCH ×2 (01:43→22:07)
[2018-08-31] MEDS: (Novolin R) Insulin Human Regular 100 units/ml vial SC SCH ×4 (08:03→22:04)
[2018-08-31 08:33] LABS: BASO % 0.3 % (0.0-2.0); EOS # 0.4 K/uL (0.0-0.7); EOS % 4.6 % (0.0-4.0); HEMOGLOBIN 10.7 g/dL (12.0-18.0); LYMPH # 1.7 K/uL (1.0-4.3); LYMPH % 20.3 % (20.0-40.0); MEAN CELL VOLUME 90.8 fL (80.0-94.0); MEAN CORPUSCULAR HEMOGLOBIN 30.7 pg (27.0-31.0); MEAN CORPUSCULAR HGB CONC 33.8 g/dL (33.0-37.0); MEAN PLATELET VOLUME 8.2 fL (7.2-11.7); MONO # 1.2 K/uL (0.0-0.8); MONO % 14.6 % (0.0-10.0); NEUT % 60.2 % (50.0-75.0); RBC 3.5 Mil/uL (4.40-5.90); RED CELL DISTRIBUTION WIDTH 13.5 % (11.5-14.5); WHITE BLOOD COUNT 8.3 K/uL (4.8-10.8)
[2018-08-31 08:55] LABS: ALB/GLOB RATIO 1.2 (1.0-2.1); ALBUMIN 3.2 g/dL (3.5-5.0); ALT/SGPT 14 U/L (21-72); AST/SGOT 21 U/L (17-59); BLOOD UREA NITROGEN 15 mg/dL (9-20); CALCIUM 8.1 mg/dl (8.6-10.4); GFR NON-AFRICAN AMERICAN > 60
--- NOTE | 2018-08-31 15:11 | CP.PCM.PN ---
Subjective - Date & Time of Evaluation Date of Evaluation: 08/31/18 Time of Evaluation: 15:09 - Subjective Subjective: Lisandro Rai PGY1 Progress Note for Dr. Ferreira Pt was examined at bedside this morning. As per at bedside he did not sleep well. She reports that he ate a moderate amount for dinner. She is agreeable to rehab at this time. Objective - Vital Signs/Intake and Output Vital Signs (last 24 hours): Temp Pulse Resp BP Pulse Ox 97.2 F L 88 20 154/75 H 96 08/31/18 07:35 08/31/18 13:00 08/31/18 07:35 08/31/18 07:35 08/31/18 07:35 - Medications Medications: Current Medications Acetaminophen (Tylenol 325mg Tab) 650 mg PO Q6H PRN PRN Reason: Fever >100.4 F Last Admin: 08/29/18 23:12 Dose: 650 mg Aspirin (Aspirin Chewable) 81 mg PO DAILY [facility] Last Admin: 08/31/18 11:19 Dose: 81 mg Donepezil HCl (Aricept) 10 mg PO HS [facility] Last Admin: 08/30/18 21:13 Dose: 10 mg Escitalopram Oxalate (Lexapro) 10 mg PO DAILY [facility] Last Admin: 08/31/18 11:20 Dose: 10 mg Heparin Sodium (Porcine) (Heparin) 5,000 units SC Q12 [facility] Last Admin: 08/31/18 11:21 Dose: 5,000 units Sodium Chloride (Sodium Chloride 0.9%) 1,000 mls @ 100 mls/hr IV .Q10H [facility] Last Admin: 08/31/18 01:43 Dose: 100 mls/hr Piperacillin Sod/Tazobactam Sod (Zosyn 3.375 Gm Iv Premix) 3.375 gm in 50 mls @ 100 mls/hr IVPB Q6H [facility]; Protocol Last Admin: 08/31/18 14:35 Dose: 100 mls/hr Insulin Human Regular (Novolin R) 0 unit SC ACHS [facility]; Protocol Last Admin: 08/31/18 12:17 Dose: 2 u Memantine (Namenda) 10 mg PO DAILY [facility] Last Admin: 08/31/18 11:20 Dose: 10 mg Rosuvastatin Calcium (Crestor) 20 mg PO HS [facility] Last Admin: 08/30/18 21:13 Dose: 20 mg - Labs Labs: 08/31/18 08:26 08/31/18 08:26 PT 12.8 SECONDS (9.7-12.2) H 08/29/18 12:50 INR 1.2 08/29/18 12:50 APTT 31 SECONDS (21-34) 08/29/18 12:50 - Additional Findings Additional findings: - Constitutional Appears: Well, No Acute Distress - Head Exam Head Exam: ATRAUMATIC, NORMOCEPHALIC - Eye Exam Eye Exam: EOMI, Normal appearance Pupil Exam: NORMAL ACCOMODATION - ENT Exam ENT Exam: Mucous Membranes Moist - Respiratory Exam Respiratory Exam: Clear to Ausculation Bilateral, NORMAL BREATHING PATTERN. absent: Rales, Rhonchi, Wheezes - Cardiovascular Exam Cardiovascular Exam: REGULAR RHYTHM, +S1, +S2. absent: Gallop, Rubs, Murmur - GI/Abdominal Exam GI & Abdominal Exam: Soft, Normal Bowel Sounds. absent: Distended, Tenderness - Extremities Exam Extremities Exam: Normal Inspection - Neurological Exam Neurological Exam: Alert, Awake, Oriented x3 Neuro motor strength exam: Left Upper Extremity: 5, Right Upper Extremity: 5, Left Lower Extremity: 5, Right Lower Extremity: 5 - Psychiatric Exam Psychiatric exam: Normal Affect, Normal Mood Assessment and Plan - Assessment and Plan (Free Text) Assessment: 77 year old male with a history of DM and Alzheimer's dementia, who presents to the hospital with complaints of right sided weakness, slurred speech, and facial droop. Plan: CVA vs. TIA - Right sided weakness has resolved - In ED, was given asa 325mg PO stat. Patient was not a TPA candidate. - Neurology consulted, Dr. Crawford. Help appreciated - EKG: NSR@84; qwaves in lead 3 and AVF, no ST elevations/depressions - CXR: no acute pathology - rpt CT head: moderate white matter basal nuclei and R cerebellar ischemic changes - Head CT w/o contrast: No acute intracranial abnormality.If there is a persistent focal neurologic deficit and an ongoing clinical concern for acute infarction, an MRI of the brain without intravenous contrast would be a more sensitive modality for evaluation of hyperacute/acute ischemic infarction. 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 - Head/Neck CTA: No evidence of endoluminal thrombus,occlusion or definite significant stenosis in the intracranial arteries. No evidence of hemodynamically significant stenosis in the internal carotid arteries. Patent bilateral vertebral arteries. - Brain MRI: f/u - EEG: f/u - A1c: 8.0 - Lipid panel: TG 135, Chol 208, LDL 145, HDL 45 - TSH low - Free T4 wnl - Medications: * Aspirin 81mg PO daily * Crestor 20mg PO HS - Neuro consulted, Dr. Crawford - recs appreciated Fever resolved - CXR: no infiltrates - UA: negative - zosyn 3.375g IV q6h - tylenol PRN - BCx neg - UCx neg - f/u rpt CXR 09/01/18 DM - Accuchecks - Hypoglycemic protocol - A1c: 8.0 - Hold home medication: Metformin 1000mg PO daily - ISS- medium Alzheimers dementia - Home medications: Memantidine 10mg PO daily, Donepizil 10mg PO daily, Somazina 500mg PO daily, Lexapro 10mg PO daily Prophylaxis - DVT: Heparin 5000u SC Q12, SCDs - GI: not indicated - PT/OT: D[facility]G HHD Dispo: pending any other neuro recs, pt requiring DOUG placement. Case discussed with Dr. Ferreira
[2018-09-01] MEDS: Sodium Chloride 0.9% 1,000 ML IV SCH ×2 (01:08→10:21)
[2018-09-01] MEDS: Piperacill/Tazo 3.375gm in Dex 3.375 GM/50 ML BAG IVPB SCH ×4 (01:08→21:00)
[2018-09-01 06:57] LABS: BASO % 0.6 % (0.0-2.0); EOS # 0.5 K/uL (0.0-0.7); EOS % 6.4 % (0.0-4.0); HEMOGLOBIN 10.8 g/dL (12.0-18.0); LYMPH # 1.8 K/uL (1.0-4.3); LYMPH % 21.4 % (20.0-40.0); MEAN CELL VOLUME 89.6 fL (80.0-94.0); MEAN CORPUSCULAR HEMOGLOBIN 29.6 pg (27.0-31.0); MEAN CORPUSCULAR HGB CONC 33.1 g/dL (33.0-37.0); MEAN PLATELET VOLUME 7.8 fL (7.2-11.7); NEUT % 59.6 % (50.0-75.0); RBC 3.63 Mil/uL (4.40-5.90); RED CELL DISTRIBUTION WIDTH 13.7 % (11.5-14.5); WHITE BLOOD COUNT 8.5 K/uL (4.8-10.8)
--- NOTE | 2018-09-01 07:19 | CP.PCM.PN ---
<Shlomo Gonzales - Last Filed: 09/01/18 14:04> Subjective - Date & Time of Evaluation Date of Evaluation: 09/01/18 Time of Evaluation: 07:19 - Subjective Subjective: PGY-1 Medicine Progress Note for Dr. Boone Patient seen and examined sitting at bedside with spouse present. No acute overnight events reported. R sided weakness is improved, no facial droop noted. Spouse states patient did not require use of cane or other walking device at baseline. Patient is pleasant, denies any acute somatic complaints. 12 pt ROS unattainable due to patient's baseline mental status. Objective - Vital Signs/Intake and Output Vital Signs (last 24 hours): Temp Pulse Resp BP Pulse Ox 97.5 F L 63 20 136/69 95 09/01/18 01:00 09/01/18 01:00 09/01/18 01:00 09/01/18 01:00 09/01/18 01:00 Intake and Output: 09/01/18 09/01/18 06:59 18:59 Intake Total 400 Output Total 400 Balance 0 - Medications Medications: Current Medications Acetaminophen (Tylenol 325mg Tab) 650 mg PO Q6H PRN PRN Reason: Fever >100.4 F Last Admin: 08/29/18 23:12 Dose: 650 mg Aspirin (Aspirin Chewable) 81 mg PO DAILY [facility] Last Admin: 08/31/18 11:19 Dose: 81 mg Donepezil HCl (Aricept) 10 mg PO HS [facility] Last Admin: 08/31/18 22:01 Dose: 10 mg Escitalopram Oxalate (Lexapro) 10 mg PO DAILY [facility] Last Admin: 08/31/18 11:20 Dose: 10 mg Heparin Sodium (Porcine) (Heparin) 5,000 units SC Q12 [facility] Last Admin: 08/31/18 22:04 Dose: 5,000 units Sodium Chloride (Sodium Chloride 0.9%) 1,000 mls @ 100 mls/hr IV .Q10H [facility] Last Admin: 09/01/18 01:08 Dose: 100 mls/hr Piperacillin Sod/Tazobactam Sod (Zosyn 3.375 Gm Iv Premix) 3.375 gm in 50 mls @ 100 mls/hr IVPB Q6H [facility]; Protocol Last Admin: 09/01/18 01:08 Dose: 100 mls/hr Insulin Human Regular (Novolin R) 0 unit SC ACHS [facility]; Protocol Last Admin: 08/31/18 22:04 Dose: 3 u Memantine (Namenda) 10 mg PO DAILY [facility] Last Admin: 08/31/18 11:20 Dose: 10 mg Rosuvastatin Calcium (Crestor) 20 mg PO HS [facility] Last Admin: 08/31/18 22:01 Dose: 20 mg - Labs Labs: 09/01/18 06:47 08/31/18 08:26 PT 12.8 SECONDS (9.7-12.2) H 08/29/18 12:50 INR 1.2 08/29/18 12:50 APTT 31 SECONDS (21-34) 08/29/18 12:50 - Constitutional Appears: No Acute Distress, Confused - Head Exam Head Exam: ATRAUMATIC, NORMAL INSPECTION, NORMOCEPHALIC - Eye Exam Eye Exam: EOMI, Normal appearance, PERRL Pupil Exam: NORMAL ACCOMODATION - ENT Exam ENT Exam: Mucous Membranes Moist, Normal Exam - Neck Exam Neck Exam: Full ROM, Normal Inspection - Respiratory Exam Respiratory Exam: Clear to Ausculation Bilateral, NORMAL BREATHING PATTERN. absent: Accessory Muscle Use, Rales, Rhonchi, Wheezes, Respiratory Distress, Stridor - Cardiovascular Exam Cardiovascular Exam: REGULAR RHYTHM, +S1, +S2 - GI/Abdominal Exam GI & Abdominal Exam: Soft, Normal Bowel Sounds. absent: Distended, Firm, Gu arding, Rigid, Tenderness, Rebound - Extremities Exam Extremities Exam: Full ROM, Normal Capillary Refill, Normal Inspection. absent: Calf Tenderness, Pedal Edema - Back Exam Back Exam: NORMAL INSPECTION - Neurological Exam Neurological Exam: Alert, Awake Neuro motor strength exam: Left Upper Extremity: 5, Right Upper Extremity: 3, Left Lower Extremity: 5, Right Lower Extremity: 5 Additional comments: Sensation intact, no facial droop noted Heel to santana, precision finger testing abnormal - Skin Skin Exam: Dry, Intact, Normal Color, Warm Assessment and Plan - Assessment and Plan (Free Text) Assessment: 77 year old male with a history of DM and Alzheimer's dementia, who presents to the hospital with complaints of right sided weakness, slurred speech, and facial droop. Slurred speech, facial droop improved. Some residual right sided weakness still noted. Plan: CVA -no slurred speech, facial droop noted on exam -right sided weakness improved -Neurology (Dr. Crawford) recs appreciated -could be new stroke or worsening of previous L caudate infarct, or resurgence of symptoms - A1c: 8.0 - Lipid panel: TG 135, Chol 208, LDL 145, HDL 45 - TSH low - Free T4 wnl -CXR (09/01): no acute pathology noted -EKG: NSR @ 84 bpm, q waves in lead 3 and AVF, no ST segment changes -CT head without contrast: No acute intracranial abnormality.If there is a persistent focal neurologic deficit and an ongoing clinical concern for acute infarction, an MRI of the brain without intravenous contrast would be a more sensitive modality for evaluation of hyperacute/acute ischemic infarction. 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 -Head/Neck CTA: No evidence of endoluminal thrombus,occlusion or definite significant stenosis in the intracranial arteries. No evidence of hemodynami hira significant stenosis in the internal carotid arteries. Patent bilateral vertebral arteries. -MRI brain: moderate diffuse chronic periventricular white matter ischemic changes extending into deep and subcortical white matter. Multiple discrete chronic appearing infarcts scattered about deep and subcortical white matter as well as b/l basal ganglia and R cerebellum. Minor chronic brainstem ischemic changes also present. -f/u EEG -f/u Echo -ASA 81mg PO daily -Crestor 20mg PO HS Fever--resolved -T max 102.6 (08/29), afebrile over 48 hours -repeat CXR: no acute pathology -UA: negative -Blood cultures, urine cultures negative - zosyn 3.375g IV q6h (08/29) DM -A1C: 8.0 -accuchecks achs -hypoglycemic protocol -ISS medium Alzheimers dementia - Home medications: Memantidine 10mg PO daily, Donepizil 10mg PO daily, Somazina 500mg PO daily, Lexapro 10mg PO daily PPx, Diet, Disposition -DVT ppx:Heparin 5000u SC Q12, SCDs -GI ppx: not indicated -PT/OT on board -Diet: HHD Case discussed with Dr. Mely Gonzales DO, PGY-1 <Lewis Boone - Last Filed: 09/01/18 16:04> Objective - Vital Signs/Intake and Output Vital Signs (last 24 hours): Temp Pulse Resp BP Pulse Ox 98.2 F 57 L 20 171/72 H 95 09/01/18 09:13 09/01/18 09:13 09/01/18 09:13 09/01/18 09:13 09/01/18 09:13 Intake and Output: 09/01/18 09/01/18 06:59 18:59 Intake Total 1300 Output Total 400 Balance 900 - Medications Medications: Current Medications Acetaminophen (Tylenol 325mg Tab) 650 mg PO Q6H PRN PRN Reason: Fever >100.4 F Last Admin: 08/29/18 23:12 Dose: 650 mg Aspirin (Aspirin Chewable) 81 mg PO DAILY [facility] Last Admin: 09/01/18 10:12 Dose: 81 mg Donepezil HCl (Aricept) 10 mg PO HS [facility] Last Admin: 08/31/18 22:01 Dose: 10 mg Escitalopram Oxalate (Lexapro) 10 mg PO DAILY [facility] Last Admin: 09/01/18 10:11 Dose: 10 mg Heparin Sodium (Porcine) (Heparin) 5,000 units SC Q12 [facility] Last Admin: 09/01/18 10:21 Dose: 5,000 units Sodium Chloride (Sodium Chloride 0.9%) 1,000 mls @ 100 mls/hr IV .Q10H [facility] Last Admin: 09/01/18 10:21 Dose: Not Given Piperacillin Sod/Tazobactam Sod (Zosyn 3.375 Gm Iv Premix) 3.375 gm in 50 mls @ 100 mls/hr IVPB Q6H [facility]; Protocol Last Admin: 09/01/18 13:47 Dose: 100 mls/hr Insulin Human Regular (Novolin R) 0 unit SC ACHS [facility]; Protocol Last Admin: 09/01/18 12:11 Dose: 4 u Memantine (Namenda) 10 mg PO DAILY [facility] Last Admin: 09/01/18 10:11 Dose: 10 mg Rosuvastatin Calcium (Crestor) 20 mg PO HS [facility] Last Admin: 08/31/18 22:01 Dose: 20 mg - Labs Labs: 09/01/18 06:47 09/01/18 06:47 PT 12.8 SECONDS (9.7-12.2) H 08/29/18 12:50 INR 1.2 08/29/18 12:50 APTT 31 SECONDS (21-34) 08/29/18 12:50 Attending/Attestation - Attestation I have personally seen and examined this patient.: Yes I have fully participated in the care of the patient.: Yes I have reviewed all pertinent clinical information, including history, physical exam and plan: Yes Notes (Text): 09/01/18 15:55 Medical attending: Patient was seen and examined by me. Agree with the above note by the resident Family member present at bedside as well The patient was not in any acute distress On exam he was able to raise both legs > 5 seconds including the R side as well as both arms above head > 5 seconds. He did not readily have a facial droop when I saw him, he was able to stick tougne out fine. We did not ask him to stand up and walk on exam. Pending echo at this time to check EF and for things such as atrial thrombus that could have potentially lead to the findings on head imaging Lewis Boone
[2018-09-01 07:31] LABS: ALB/GLOB RATIO 1.2 (1.0-2.1); ALBUMIN 3.3 g/dL (3.5-5.0); ALT/SGPT 18 U/L (21-72); AST/SGOT 19 U/L (17-59); BLOOD UREA NITROGEN 11 mg/dL (9-20); CALCIUM 7.9 mg/dl (8.6-10.4); GFR NON-AFRICAN AMERICAN > 60
[2018-09-01] MEDS ORDERED: Potassium Chloride 20 mEq ER Tab PO ONE (08:31)
[2018-09-01] MEDS: (Novolin R) Insulin Human Regular 100 units/ml vial SC SCH ×4 (08:54→22:03)
--- NOTE | 2018-09-01 10:05 | RAD ---
Date of service: 09/01/2018 HISTORY: pt with fever of unkonwn origin COMPARISON: 08/29/2018. FINDINGS: LUNGS: There is low lung volume on the right. The left lung is well inflated. There is mild right basilar atelectasis. PLEURA: No pleural effusions or pneumothorax. CARDIOVASCULAR: The heart is normal in size. No aortic atherosclerotic calcifications present. OSSEOUS STRUCTURES: Within normal limits for the patient's age. VISUALIZED UPPER ABDOMEN: Normal. OTHER FINDINGS: There is chronic elevation of the right hemidiaphragm. IMPRESSION: No active pulmonary disease.
--- NOTE | 2018-09-01 12:50 | CARD ---
APPROVED REPORT Date of service: 08/29/2018 EKG Measurement Heart [id number] <Conclusion> Normal sinus rhythm Inferior infarct, age undetermined Abnormal ECG
--- NOTE | 2018-09-01 15:46 | CP.PCM.PN ---
Subjective - Date & Time of Evaluation Date of Evaluation: 09/01/18 Time of Evaluation: 15:49 - Subjective Subjective: Neuro Follow-Up: Mr. Ritchie was evaluated this afternoon at bedside. He states that he feels "miserable" but cannot tell me exactly what bothers him. When asked if he had dizziness, h/a, visual changes, chest pain, sob, cough, abd, n/v/d, he answered yes to everything. Pt is confused; has baseline dementia. No family at bedsid e. Objective - Vital Signs/Intake and Output Vital Signs (last 24 hours): Temp Pulse Resp BP Pulse Ox 98.2 F 57 L 20 171/72 H 95 09/01/18 09:13 09/01/18 09:13 09/01/18 09:13 09/01/18 09:13 09/01/18 09:13 Intake and Output: 09/01/18 09/01/18 06:59 18:59 Intake Total 1300 Output Total 400 Balance 900 - Medications Medications: Current Medications Acetaminophen (Tylenol 325mg Tab) 650 mg PO Q6H PRN PRN Reason: Fever >100.4 F Last Admin: 08/29/18 23:12 Dose: 650 mg Aspirin (Aspirin Chewable) 81 mg PO DAILY [facility] Last Admin: 09/01/18 10:12 Dose: 81 mg Donepezil HCl (Aricept) 10 mg PO HS [facility] Last Admin: 08/31/18 22:01 Dose: 10 mg Escitalopram Oxalate (Lexapro) 10 mg PO DAILY [facility] Last Admin: 09/01/18 10:11 Dose: 10 mg Heparin Sodium (Porcine) (Heparin) 5,000 units SC Q12 [facility] Last Admin: 09/01/18 10:21 Dose: 5,000 units Sodium Chloride (Sodium Chloride 0.9%) 1,000 mls @ 100 mls/hr IV .Q10H [facility] Last Admin: 09/01/18 10:21 Dose: Not Given Piperacillin Sod/Tazobactam Sod (Zosyn 3.375 Gm Iv Premix) 3.375 gm in 50 mls @ 100 mls/hr IVPB Q6H [facility]; Protocol Last Admin: 09/01/18 13:47 Dose: 100 mls/hr Insulin Human Regular (Novolin R) 0 unit SC ACHS [facility]; Protocol Last Admin: 09/01/18 12:11 Dose: 4 u Memantine (Namenda) 10 mg PO DAILY [facility] Last Admin: 09/01/18 10:11 Dose: 10 mg Rosuvastatin Calcium (Crestor) 20 mg PO HS [facility] Last Admin: 08/31/18 22:01 Dose: 20 mg - Labs Labs: 09/01/18 06:47 09/01/18 06:47 PT 12.8 SECONDS (9.7-12.2) H 08/29/18 12:50 INR 1.2 08/29/18 12:50 APTT 31 SECONDS (21-34) 08/29/18 12:50 - Constitutional Appears: Non-toxic, No Acute Distress, Confused - Head Exam Head Exam: ATRAUMATIC, NORMAL INSPECTION, NORMOCEPHALIC - Eye Exam Eye Exam: EOMI, Normal appearance, PERRL Pupil Exam: NORMAL ACCOMODATION, PERRL - ENT Exam ENT Exam: Mucous Membranes Moist - Neck Exam Neck Exam: Full ROM, Normal Inspection - Respiratory Exam Respiratory Exam: NORMAL BREATHING PATTERN - Extremities Exam Extremities Exam: Full ROM. absent: Calf Tenderness, Pedal Edema - Back Exam Back Exam: Full ROM - Neurological Exam Neurological Exam: Alert, Altered, Awake, CN II-XII Intact, Reflexes Normal. absent: Oriented x3 Neuro motor strength exam: Left Upper Extremity: 4, Right Upper Extremity: 4, Left Lower Extremity: 4, Right Lower Extremity: 4 Additional comments: Pt is confused; at baseline (dementia) Awake, alert; disoriented to person, place and time. Speech clear Strength equal all extremities; FROM; some weakness noted 2/2 deconditioning. No pronator drift to RUE; no RLE drift No tremors; no abnormal movements. Toes down going b/l Attempted to do finger to nose but pt couldn't understand instructions and refused to do. Gait not assessed. - Psychiatric Exam Additional comments: confused - Skin Skin Exam: Normal Color Assessment and Plan - Assessment and Plan (Free Text) Assessment: A/P: Mr. Ritchie is a 77 y/o M who was admitted for right sided weakness and slurred speech. He was evaluated for possible new stroke, however, imaging thus far is negative for acute infarct or hemorrhage. His symptoms have also resolved and he is back to baseline (pt has dementia). Imaging reviewed: -MRI Brain (08/30/18): Moderate diffuse/confluent chronic periventricular white matter ischemic changes extending peripherally into the deep and subcortical white matter both cerebral hemispheres seen to better advantage on this study as compared to CT scan. In addition, there are multiple more discrete chronic appearing infarcts scattered about the deep and subcortical white matter as well as both basal nuclei and the right cerebellum. Minor chronic appearing brainstem ischemic changes are also felt to be present. None of these findings exhibit restricted diffusion however. Moderate generalized volume loss. -CTA Head and Neck (08/29/18): 1. No evidence of endoluminal thrombus,occlusion or definite significant stenosis in the intracranial arteries. 2. No evidence of hemodynamically significant stenosis in the internal carotid arteries. 3. Patent bilateral vertebral arteries. -CT Head (08/29/18): No acute intracranial abnormality.If there is a persistent focal neurologic deficit and an ongoing clinical concern for acute infarction, an MRI of the brain without intravenous contrast would be a more sensitive modality for evaluation of hyperacute/acute ischemic infarction. 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 -Continue current treatment, including ASA and Statin. -Continue PT/OT -ECHO and EEG ordered and pending--will f/u with results once they are completed. If EEG is negative, pt can be cleared from neuro standpoint. -Notify neuro team of any acute changes in pt's condition. Miranda Falcon DNP, [employer] SPECIALIST Discussed with Dr. Crawford NIHSS Stroke Scale - Date/Time Evaluation Performed Date Performed: 09/01/18 Time Performed: 15:59 When Was NIHSS Performed: Other (neuro f/u visit) - How Severe is the Stoke Level of Consciousness: 0=Alert LOC to Questions: 2=Neither correct LOC to commands: 0=Obeys both correctly Best Gaze: 0=Normal Visual: 0=No visual loss Facial: 0=Normal Motor Arm - Left: 0=No drift Motor Arm - Right: 0=No drift Motor Leg - Left: 0=No drift Motor Leg - Right: 0=No drift Limb Ataxia: 0=Absent Sensory: 0=Normal Best Language: 0=No aphasia Dysarthia: 0=Normal articulation Extinction & Inattention (Neglect): 0=Normal, no object Score: 2
[2018-09-02] MEDS: Piperacill/Tazo 3.375gm in Dex 3.375 GM/50 ML BAG IVPB SCH ×4 (02:18→20:16)
[2018-09-02 06:38] LABS: BASO % 0.6 % (0.0-2.0); EOS # 0.7 K/uL (0.0-0.7); EOS % 9.4 % (0.0-4.0); HEMOGLOBIN 10.4 g/dL (12.0-18.0); LYMPH # 2.2 K/uL (1.0-4.3); LYMPH % 31.1 % (20.0-40.0); MEAN CELL VOLUME 89.7 fL (80.0-94.0); MEAN CORPUSCULAR HGB CONC 33.5 g/dL (33.0-37.0); MEAN PLATELET VOLUME 8.3 fL (7.2-11.7); MONO # 0.9 K/uL (0.0-0.8); MONO % 13.3 % (0.0-10.0); NEUT # 3.2 K/uL (1.8-7.0); NEUT % 45.6 % (50.0-75.0); NRBC % 0.1 % (0.0-2.0); RBC 3.48 Mil/uL (4.40-5.90); RED CELL DISTRIBUTION WIDTH 13.4 % (11.5-14.5)
--- NOTE | 2018-09-02 06:59 | CP.PCM.PN ---
<Shlomo Gonzales - Last Filed: 09/02/18 13:18> Subjective - Date & Time of Evaluation Date of Evaluation: 09/02/18 Time of Evaluation: 06:58 - Subjective Subjective: PGY-1 Medicine Progress Note for Dr. Boone Patient seen and examined at bedside, resting comfortably in no acute distress. No overnight events reported. Patient is confused at baseline, does not endorse any acute somatic complaints. 12 pt ROS unattainable due to mental status. Awaiting Neuro clearance pending EEG read, patient will need rehab placement as well. Objective - Vital Signs/Intake and Output Vital Signs (last 24 hours): Temp Pulse Resp BP Pulse Ox 97.7 F 67 20 145/71 96 09/02/18 06:00 09/02/18 06:00 09/02/18 06:00 09/02/18 06:00 09/02/18 06:00 - Medications Medications: Current Medications Acetaminophen (Tylenol 325mg Tab) 650 mg PO Q6H PRN PRN Reason: Fever >100.4 F Last Admin: 09/01/18 22:18 Dose: 650 mg Aspirin (Aspirin Chewable) 81 mg PO DAILY [facility] Last Admin: 09/01/18 10:12 Dose: 81 mg Donepezil HCl (Aricept) 10 mg PO HS [facility] Last Admin: 09/01/18 22:10 Dose: 10 mg Escitalopram Oxalate (Lexapro) 10 mg PO DAILY [facility] Last Admin: 09/01/18 10:11 Dose: 10 mg Heparin Sodium (Porcine) (Heparin) 5,000 units SC Q12 [facility] Last Admin: 09/01/18 22:04 Dose: 5,000 units Piperacillin Sod/Tazobactam Sod (Zosyn 3.375 Gm Iv Premix) 3.375 gm in 50 mls @ 100 mls/hr IVPB Q6H [facility]; Protocol Last Admin: 09/02/18 02:18 Dose: 100 mls/hr Insulin Human Regular (Novolin R) 0 unit SC ACHS [facility]; Protocol Last Admin: 09/01/18 22:03 Dose: 2 u Memantine (Namenda) 10 mg PO DAILY [facility] Last Admin: 09/01/18 10:11 Dose: 10 mg Rosuvastatin Calcium (Crestor) 20 mg PO HS [facility] Last Admin: 09/01/18 22:04 Dose: 20 mg - Labs Labs: 09/02/18 06:26 09/01/18 06:47 PT 12.8 SECONDS (9.7-12.2) H 08/29/18 12:50 INR 1.2 08/29/18 12:50 APTT 31 SECONDS (21-34) 08/29/18 12:50 - Constitutional Appears: No Acute Distress, Confused - Head Exam Head Exam: ATRAUMATIC, NORMAL INSPECTION, NORMOCEPHALIC - Eye Exam Eye Exam: EOMI, Normal appearance Pupil Exam: NORMAL ACCOMODATION - ENT Exam ENT Exam: Mucous Membranes Moist, Normal Exam - Neck Exam Neck Exam: Full ROM, Normal Inspection - Respiratory Exam Respiratory Exam: Clear to Ausculation Bilateral, NORMAL BREATHING PATTERN. absent: Accessory Muscle Use, Rales, Rhonchi, Wheezes, Respiratory Distress, Stridor - Cardiovascular Exam Cardiovascular Exam: REGULAR RHYTHM, +S1, +S2 - GI/Abdominal Exam GI & Abdominal Exam: Soft, Normal Bowel Sounds. absent: Distended, Firm, Guarding, Rigid, Tenderness, Rebound - Extremities Exam Extremities Exam: Full ROM, Normal Capillary Refill, Normal Inspection - Back Exam Back Exam: NORMAL INSPECTION - Neurological Exam Neurological Exam: Alert, Awake Neuro motor strength exam: Left Upper Extremity: 5, Right Upper Extremity: 3, Left Lower Extremity: 5, Right Lower Extremity: 5 - Skin Skin Exam: Dry, Intact, Normal Color, Warm Assessment and Plan - Assessment and Plan (Free Text) Assessment: 77 year old male with a history of DM and Alzheimer's dementia, who presents to the hospital with complaints of right sided weakness, slurred speech, and facial droop. Slurred speech, facial droop improved. Some residual right sided weakness still noted. Plan: CVA -no slurred speech, facial droop noted on exam -right sided weakness improved -Neurology (Dr. Crawford) recs appreciated -could be new stroke or worsening of previous L caudate infarct, or resurgence of symptoms - A1c: 8.0 - Lipid panel: TG 135, Chol 208, LDL 145, HDL 45 - TSH low - Free T4 wnl -CXR (09/01): no acute pathology noted -EKG: NSR @ 84 bpm, q waves in lead 3 and AVF, no ST segment changes -CT head without contrast: No acute intracranial abnormality.If there is a persistent focal neurologic deficit and an ongoing clinical concern for acute infarction, an MRI of the brain without intravenous contrast would be a more sensitive modality for evaluation of hyperacute/acute ischemic infarction. 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 -Head/Neck CTA: No evidence of endoluminal thrombus,occlusion or definite significant stenosis in the intracranial arteries. No evidence of hemodynamically significant stenosis in the internal carotid arteries. Patent bilateral vertebral arteries. -MRI brain: moderate diffuse chronic periventricular white matter ischemic changes extending into deep and subcortical white matter. Multiple discrete chronic appearing infarcts scattered about deep and subcortical white matter as well as b/l basal ganglia and R cerebellum. Minor chronic brainstem ischemic changes also present. -f/u EEG -f/u Echo report -ASA 81mg PO daily -Crestor 20mg PO HS Fever--resolved -T max 102.6 (08/29), afebrile over 48 hours -repeat CXR: no acute pathology -UA: negative -Blood cultures, urine cultures negative - zosyn 3.375g IV q6h (08/29) DM -A1C: 8.0 -accuchecks achs -hypoglycemic protocol -ISS medium Alzheimers dementia - Home medications: Memantidine 10mg PO daily, Donepizil 10mg PO daily, Somazina 500mg PO daily, Lexapro 10mg PO daily PPx, Diet, Disposition -DVT ppx:Heparin 5000u SC Q12, SCDs -GI ppx: not indicated -PT/OT on board -Diet: HHD -Dispo: awaiting Neuro clearance pending EEG reading. D/C planning to rehab. Case discussed with Dr. Mely Gonzales DO, PGY-1 <Lewis Boone H - Last Filed: 09/02/18 16:50> Objective - Vital Signs/Intake and Output Vital Signs (last 24 hours): Temp Pulse Resp BP Pulse Ox 97.3 F L 72 20 139/69 97 09/02/18 07:00 09/02/18 15:54 09/02/18 07:00 09/02/18 07:00 09/02/18 07:00 Intake and Output: 09/02/18 09/02/18 06:59 18:59 Intake Total 670 Output Total 1 Balance 669 - Medications Medications: Current Medications Acetaminophen (Tylenol 325mg Tab) 650 mg PO Q6H PRN PRN Reason: Fever >100.4 F Last Admin: 09/01/18 22:18 Dose: 650 mg Aspirin (Aspirin Chewable) 81 mg PO DAILY [facility] Last Admin: 09/02/18 10:00 Dose: 81 mg Donepezil HCl (Aricept) 10 mg PO HS [facility] Last Admin: 09/01/18 22:10 Dose: 10 mg Escitalopram Oxalate (Lexapro) 10 mg PO DAILY [facility] Last Admin: 09/02/18 10:00 Dose: 10 mg Heparin Sodium (Porcine) (Heparin) 5,000 units SC Q12 [facility] Last Admin: 09/02/18 10:00 Dose: 5,000 units Piperacillin Sod/Tazobactam Sod (Zosyn 3.375 Gm Iv Premix) 3.375 gm in 50 mls @ 100 mls/hr IVPB Q6H [facility]; Protocol Last Admin: 09/02/18 14:12 Dose: Not Given Insulin Human Regular (Novolin R) 0 unit SC ACHS [facility]; Protocol Last Admin: 09/02/18 12:00 Dose: 8 u Memantine (Namenda) 10 mg PO DAILY [facility] Last Admin: 09/02/18 10:00 Dose: 10 mg Rosuvastatin Calcium (Crestor) 20 mg PO [facility] Last Admin: 09/01/18 22:04 Dose: 20 mg - Labs Labs: 09/02/18 06:26 09/02/18 06:26 PT 12.8 SECONDS (9.7-12.2) H 08/29/18 12:50 INR 1.2 08/29/18 12:50 APTT 31 SECONDS (21-34) 08/29/18 12:50 Attending/Attestation - Attestation I have personally seen and examined this patient.: Yes I have fully participated in the care of the patient.: Yes I have reviewed all pertinent clinical information, including history, physical exam and plan: Yes Notes (Text): 09/02/18 16:23 Medical attending: Patient was seen and examined by me. Agree with the above note by the resident The patient is pending EEG as well as echocardiogram this morning. Otherwise he reported no acute concerns at this time. The patient does have dementia at baseline however was cooperative and following simple one step commands in [place]ic. We are trying to have patient go to rehab at some point The caseworkers explain that the phone numbers in the chart are not correct I did receive a page from family member who said he was patient's son name Dexter this morning - however I was not able to get done a contact number at that time since I was not yet informed the numbers in the chart were not correct Lewis Boone
[2018-09-02 07:25] LABS: ALB/GLOB RATIO 1.2 (1.0-2.1); ALBUMIN 3.4 g/dL (3.5-5.0); ALT/SGPT 17 U/L (21-72); AST/SGOT 24 U/L (17-59); BLOOD UREA NITROGEN 14 mg/dL (9-20); CALCIUM 8.3 mg/dl (8.6-10.4); GFR NON-AFRICAN AMERICAN > 60
[2018-09-02] MEDS: (Novolin R) Insulin Human Regular 100 units/ml vial SC SCH ×4 (08:05→21:25)
[2018-09-02] MEDS ORDERED: Potassium Chloride 20 mEq ER Tab PO ONE (10:00)
--- NOTE | 2018-09-02 13:47 | CP.PCM.PN ---
Subjective - Date & Time of Evaluation Date of Evaluation: 09/02/18 Time of Evaluation: 13:45 - Subjective Subjective: Neuro Follow-Up: Mr. Ritchie was evaluated this afternoon at bedside. No family at bedside. Pt states that he feels good today and offers no complaints. Eager to go home. Denies h/a, dizziness, visual changes, chest pain, sob, abd pain, n/v/d, paresthesias. Objective - Vital Signs/Intake and Output Vital Signs (last 24 hours): Temp Pulse Resp BP Pulse Ox 97.3 F L 60 20 139/69 97 09/02/18 07:00 09/02/18 07:00 09/02/18 07:00 09/02/18 07:00 09/02/18 07:00 Intake and Output: 09/02/18 09/02/18 06:59 18:59 Intake Total 240 Balance 240 - Medications Medications: Current Medications Acetaminophen (Tylenol 325mg Tab) 650 mg PO Q6H PRN PRN Reason: Fever >100.4 F Last Admin: 09/01/18 22:18 Dose: 650 mg Aspirin (Aspirin Chewable) 81 mg PO DAILY [facility] Last Admin: 09/02/18 10:00 Dose: 81 mg Donepezil HCl (Aricept) 10 mg PO HS [facility] Last Admin: 09/01/18 22:10 Dose: 10 mg Escitalopram Oxalate (Lexapro) 10 mg PO DAILY [facility] Last Admin: 09/02/18 10:00 Dose: 10 mg Heparin Sodium (Porcine) (Heparin) 5,000 units SC Q12 [facility] Last Admin: 09/02/18 10:00 Dose: 5,000 units Piperacillin Sod/Tazobactam Sod (Zosyn 3.375 Gm Iv Premix) 3.375 gm in 50 mls @ 100 mls/hr IVPB Q6H [facility]; Protocol Last Admin: 09/02/18 09:00 Dose: 100 mls/hr Insulin Human Regular (Novolin R) 0 unit SC ACHS [facility]; Protocol Last Admin: 09/02/18 12:00 Dose: 8 u Memantine (Namenda) 10 mg PO DAILY [facility] Last Admin: 09/02/18 10:00 Dose: 10 mg Rosuvastatin Calcium (Crestor) 20 mg PO HS [facility] Last Admin: 09/01/18 22:04 Dose: 20 mg - Labs Labs: 03/05/19 06:26 09/02/18 06:26 PT 12.8 SECONDS (9.7-12.2) H 08/29/18 12:50 INR 1.2 08/29/18 12:50 APTT 31 SECONDS (21-34) 08/29/18 12:50 - Constitutional Appears: Well, Non-toxic, No Acute Distress, Confused (baseline dementia) - Head Exam Head Exam: ATRAUMATIC, NORMAL INSPECTION, NORMOCEPHALIC - Eye Exam Eye Exam: EOMI, Normal appearance, PERRL Pupil Exam: NORMAL ACCOMODATION, PERRL - ENT Exam ENT Exam: Mucous Membranes Moist - Neck Exam Neck Exam: Full ROM, Normal Inspection - Respiratory Exam Respiratory Exam: NORMAL BREATHING PATTERN - Extremities Exam Extremities Exam: Full ROM. absent: Calf Tenderness, Pedal Edema - Neurological Exam Neurological Exam: Abnormal Gait, Alert, Altered, Awake, CN II-XII Intact. absent: Oriented x3 Neuro motor strength exam: Left Upper Extremity: 5, Right Upper Extremity: 5, Left Lower Extremity: 4, Right Lower Extremity: 4 Additional comments: Pt is confused but is at baseline (dementia) Awake, alert; disoriented to person, place and time. Speech clear Strength equal all extremities; FROM; some weakness noted 2/2 deconditioning. No pronator drift to RUE; no RLE drift No tremors; no abnormal movements. Toes down going b/l Gait unsteady. - Psychiatric Exam Psychiatric exam: Normal Mood (confused; at baseline (dementia)) - Skin Skin Exam: Normal Color Assessment and Plan - Assessment and Plan (Free Text) Assessment: A/P: Mr. Ritchie is a 77 y/o M who was admitted for right sided weakness and slu rred speech. He was evaluated for possible new stroke, however, imaging thus far is negative for acute infarct or hemorrhage. His symptoms have also resolved and he is still at his baseline (pt has dementia). Imaging reviewed: -MRI Brain (08/30/18): Moderate diffuse/confluent chronic periventricular white matter ischemic changes extending peripherally into the deep and subcortical white matter both cerebral hemispheres seen to better advantage on this study as compared to CT scan. In addition, there are multiple more discrete chronic appearing infarcts scattered about the deep and subcortical white matter as well as both basal nuclei and the right cerebellum. Minor chronic appearing br ainstem ischemic changes are also felt to be present. None of these findings exhibit restricted diffusion however. Moderate generalized volume loss. -CTA Head and Neck (08/29/18): 1. No evidence of endoluminal thrombus,occlusion or definite significant stenosis in the intracranial arteries. 2. No evidence of hemodynamically significant stenosis in the internal carotid arteries. 3. Patent bilateral vertebral arteries. -CT Head (08/29/18): No acute intracranial abnormality.If there is a persistent focal neurologic deficit and an ongoing clinical concern for acute infarction, an MRI of the brain without intravenous contrast would be a more sensitive modality for evaluation of hyperacute/acute ischemic infarction. 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 -ECHO done this morning, results pending. -EEG done this morning---if negative, pt can be cleared from neuro standpoint. -Continue current treatment, including ASA and Statin. -Continue PT/OT. -Notify neuro team of any acute changes in pt's condition. Miranda Falcon, DNP, [facility] Discussed with Dr. Nick
--- NOTE | 2018-09-02 23:50 | CARD ---
APPROVED REPORT Date of service: 09/02/2018 EXAM: Two-dimensional and M-mode echocardiogram with Doppler and color Doppler. INDICATION CVA/TIA RISK FACTORS Diabetes 2D DIMENSIONS IVSd1.0 (0.7-1.1cm)Aortic Root (2D)3.4 (2.0-3.7cm) LVDd4.9 (3.9-5.9cm)PWd0.9 (0.7-1.1cm) LA Bkktos55 (18-58mL)LVDs3.1 (2.5-4.0cm) FS (%) 36.4 %LVEF (%)66.0 (>50%) LVEF (Wild's)60 %IVC0.00 cm M-Mode DIMENSIONS RVDd2.05 (2.1-3.2cm)Left Atrium (MM)2.99 (2.5-4.0cm) IVSd0.73 (0.7-1.1cm)Aortic Root3.57 (2.2-3.7cm) LVDd5.37 (4.0-5.6cm)Aortic Cusp Exc.2.30 (1.5-2.0cm) PWd0.93 (0.7-1.1cm)FS (%) 36 % LVDs3.42 (2.0-3.8cm)LVEF (%)66 (>50%) Mitral Valve MV E Hiilpuvx17.3cm/sMV A Yfcqzkbb668.0cm/sE/A ratio0.9 TDI Lateral E' Peak V5.38cm/sMedial E' Peak V4.54cm/sE/Lateral E'16.8 E/Medial E'19.9 Tricuspid Valve TR Peak Jxlvumip177he/sTR Peak Gr.[id number] LEFT VENTRICLE The left ventricle is normal size. There is normal left ventricular wall thickness. Left ventricle systolic function is normal. The Ejection Fraction is 65-70%. There is normal LV segmental wall motion. The left ventricular diastolic function is abnormal- Grade I-abnormal relaxation pattern. No left ventricle thrombus noted on this study. RIGHT VENTRICLE The right ventricle is normal size. The right ventricular systolic function is normal. ATRIA The left atrium size is normal. The right atrium size is normal. AORTIC VALVE The aortic valve is mildly sclerotic. The aortic valve is trileaflet. No aortic regurgitation is present. There is no aortic valvular stenosis. There is no aortic valvular vegetation. MITRAL VALVE Mitral annular calcification is mild. There is no evidence of mitral valve prolapse. There is no mitral valve stenosis. Mitral regurgitation is trace to mild. TRICUSPID VALVE The tricuspid valve is normal in structure. There is mild tricuspid regurgitation. Right ventricular systolic pressure is estimated at less than 30 mmHg. There is no pulmonary hypertension. There is no tricuspid valve prolapse or vegetation. There is no tricuspid valve stenosis. PULMONIC VALVE The pulmonary valve is normal in structure. There is trace to mild pulmonic valvular regurgitation. There is no pulmonic valvular stenosis. GREAT VESSELS The aortic root is normal in size. The IVC is normal in size and collapses >50% with inspiration. PERICARDIAL EFFUSION There is no pericardial effusion. There is no pleural effusion. <Conclusion> The left ventricle is normal size. Left ventricle systolic function is normal. The Ejection Fraction is 65-70%. The left ventricular diastolic function is abnormal- Grade I-abnormal relaxation pattern. The right ventricle is normal size. The right ventricular systolic function is normal. The left atrium size is normal. The right atrium size is normal. Mitral regurgitation is trace to mild. There is mild tricuspid regurgitation. There is trace to mild pulmonic valvular regurgitation.
[2018-09-03 00:24] VITALS: RESP 20
[2018-09-03] MEDS: Piperacill/Tazo 3.375gm in Dex 3.375 GM/50 ML BAG IVPB SCH ×3 (02:11→13:58)
--- NOTE | 2018-09-03 07:34 | CP.PCM.PN ---
Subjective - Date & Time of Evaluation Date of Evaluation: 09/03/18 Time of Evaluation: 07:34 Objective - Vital Signs/Intake and Output Vital Signs (last 24 hours): Temp Pulse Resp BP Pulse Ox 97.3 F L 67 20 139/69 97 09/02/18 07:00 09/03/18 03:37 09/02/18 07:00 09/02/18 07:00 09/02/18 07:00 - Medications Medications: Current Medications Acetaminophen (Tylenol 325mg Tab) 650 mg PO Q6H PRN PRN Reason: Fever >100.4 F Last Admin: 09/01/18 22:18 Dose: 650 mg Aspirin (Aspirin Chewable) 81 mg PO DAILY [facility] Last Admin: 09/02/18 10:00 Dose: 81 mg Donepezil HCl (Aricept) 10 mg PO HS [facility] Last Admin: 09/02/18 21:27 Dose: 10 mg Escitalopram Oxalate (Lexapro) 10 mg PO DAILY [facility] Last Admin: 09/02/18 10:00 Dose: 10 mg Heparin Sodium (Porcine) (Heparin) 5,000 units SC Q12 [facility] Last Admin: 09/02/18 21:27 Dose: 5,000 units Piperacillin Sod/Tazobactam Sod (Zosyn 3.375 Gm Iv Premix) 3.375 gm in 50 mls @ 100 mls/hr IVPB Q6H [facility]; Protocol Last Admin: 09/03/18 02:11 Dose: 100 mls/hr Insulin Human Regular (Novolin R) 0 unit SC ACHS [facility]; Protocol Last Admin: 09/02/18 21:25 Dose: Not Given Memantine (Namenda) 10 mg PO DAILY [facility] Last Admin: 09/02/18 10:00 Dose: 10 mg Rosuvastatin Calcium (Crestor) 20 mg PO HS [facility] Last Admin: 09/02/18 21:27 Dose: 20 mg - Labs Labs: 09/02/18 06:26 09/02/18 06:26 PT 12.8 SECONDS (9.7-12.2) H 08/29/18 12:50 INR 1.2 08/29/18 12:50 APTT 31 SECONDS (21-34) 08/29/18 12:50
[2018-09-03] MEDS: (Novolin R) Insulin Human Regular 100 units/ml vial SC SCH ×3 (07:52→17:16)
[2018-09-03 10:36] LABS: BASO % 0.4 % (0.0-2.0); EOS # 0.5 K/uL (0.0-0.7); EOS % 6.7 % (0.0-4.0); HEMOGLOBIN 11.6 g/dL (12.0-18.0); LYMPH # 1.5 K/uL (1.0-4.3); LYMPH % 20.4 % (20.0-40.0); MEAN CORPUSCULAR HEMOGLOBIN 30.1 pg (27.0-31.0); MEAN CORPUSCULAR HGB CONC 33.1 g/dL (33.0-37.0); MONO # 0.7 K/uL (0.0-0.8); MONO % 9.5 % (0.0-10.0); NEUT # 4.5 K/uL (1.8-7.0); NRBC % 0.1 % (0.0-2.0); RBC 3.86 Mil/uL (4.40-5.90); RED CELL DISTRIBUTION WIDTH 13.2 % (11.5-14.5); WHITE BLOOD COUNT 7.2 K/uL (4.8-10.8)
[2018-09-03 11:12] LABS: ALB/GLOB RATIO 1.2 (1.0-2.1); ALT/SGPT 37 U/L (21-72); AST/SGOT 44 U/L (17-59); BLOOD UREA NITROGEN 14 mg/dL (9-20); CALCIUM 8.7 mg/dl (8.6-10.4); GFR NON-AFRICAN AMERICAN > 60
--- NOTE | 2018-09-03 13:55 | CP.PCM.DIS ---
<AngelbenjamincolleenShlomo - Last Filed: 09/03/18 13:56> Provider - Provider Date of Admission: 08/29/18 13:58 Attending physician: Lewis Boone DO Consults: 08/29/18 12:43 Stroke Team Consult Stat Comment: Consulting Provider: Neurohospitalist Consulting Physician: NEUROHOSP Neurohospitalist for Consult: Eric Crawford Neurohospitalist for Consult: SandovalGautami Reason for Consult: weakness 08/29/18 15:03 Case Management Referral Routine Comment: Physician Instructions: Reason For Exam: Reason for Referral: Shuttleless Loom Weaver Eval Time Spent in preparation of Discharge (in minutes): 40 Diagnosis - Discharge Diagnosis (1) CVA (cerebral vascular accident) Status: Chronic Hospital Course - Lab Results Lab Results: Micro Results 08/29/18 14:00 Blood-Venous Blood Culture - Preliminary NO GROWTH AFTER 4 DAYS 08/29/18 13:00 Blood-Venous Blood Culture - Preliminary NO GROWTH AFTER 4 DAYS 08/30/18 04:52 Urine,Clean Catch Urine Culture - Final No Growth (<1,000 CFU/ML) Most Recent Lab Values WBC 7.2 K/uL (4.8-10.8) 09/03/18 10:31 RBC 3.86 Mil/uL (4.40-5.90) L 09/03/18 10:31 Hgb 11.6 g/dL (12.0-18.0) L 09/03/18 10:31 Hct 35.1 % (35.0-51.0) 09/03/18 10:31 MCV 91.0 fL (80.0-94.0) 09/03/18 10:31 MCH 30.1 pg (27.0-31.0) 09/03/18 10:31 MCHC 33.1 g/dL (33.0-37.0) 09/03/18 10:31 RDW 13.2 % (11.5-14.5) 09/03/18 10:31 Plt Count 296 K/uL (130-400) 09/03/18 10:31 MPV 8.0 fL (7.2-11.7) 09/03/18 10:31 Neut % (Auto) 63.0 % (50.0-75.0) 09/03/18 10:31 Lymph % (Auto) 20.4 % (20.0-40.0) 09/03/18 10:31 [place] % (Auto) 9.5 % (0.0-10.0) 09/03/18 10:31 Eos % (Auto) 6.7 % (0.0-4.0) H 09/03/18 10:31 Baso % (Auto) 0.4 % (0.0-2.0) 09/03/18 10:31 Neut # (Auto) 4.5 K/uL (1.8-7.0) 09/03/18 10:31 Lymph # (Auto) 1.5 K/uL (1.0-4.3) 09/03/18 10:31 [place] # (Auto) 0.7 K/uL (0.0-0.8) 09/03/18 10:31 Eos # (Auto) 0.5 K/uL (0.0-0.7) 09/03/18 10:31 Baso # (Auto) 0.0 K/uL (0.0-0.2) 09/03/18 10:31 Neutrophils % (Manual) 72 % (50-75) 08/30/18 08:31 Band Neutrophils % 7 % (0-2) H 08/30/18 08:31 Lymphocytes % (Manual) 6 % (20-40) L 08/30/18 08:31 Reactive Lymphs % 3 % (0-0) H 08/30/18 08:31 Monocytes % (Manual) 12 % (0-10) H 08/30/18 08:31 Eosinophils % (Manual) TEST NOT PERFORMED 08/29/18 12:50 Platelet Estimate Normal (NORMAL) 08/30/18 08:31 Large Platelets Present 08/29/18 12:50 RBC Morphology Normal 08/29/18 12:50 Anisocytosis (manual) Slight 08/30/18 08:31 PT 12.8 SECONDS (9.7-12.2) H 08/29/18 12:50 INR 1.2 08/29/18 12:50 APTT 31 SECONDS (21-34) 08/29/18 12:50 Sodium 136 mmol/L (132-148) 09/03/18 10:31 Potassium 4.2 mmol/L (3.6-5.2) 09/03/18 10:31 Chloride 99 mmol/L (98-107) 09/03/18 10:31 Carbon Dioxide 33 mmol/L (22-30) H 09/03/18 10:31 Anion Gap 9 (10-20) L 09/03/18 10:31 BUN 14 mg/dL (9-20) 09/03/18 10:31 Creatinine 1.0 mg/dL (0.8-1.5) 09/03/18 10:31 Est GFR ( Amer) > 60 09/03/18 10:31 Est GFR (Non-Af Amer) > 60 09/03/18 10:31 POC Glucose (mg/dL) 404 mg/dL (65-110) H* 09/03/18 10:54 Random Glucose 417 mg/dL (75-110) H* D 09/03/18 10:31 Hemoglobin A1c 8.0 % (4.2-6.5) H 08/29/18 12:50 Lactic Acid 0.9 mmol/L (0.7-2.1) 08/30/18 02:15 Calcium 8.7 mg/dl (8.6-10.4) 09/03/18 10:31 Phosphorus 3.2 mg/dL (2.5-4.5) 09/03/18 10:31 Magnesium 1.6 mg/dL (1.6-2.3) 09/03/18 10:31 Total Bilirubin 0.4 mg/dL (0.2-1.3) 09/03/18 10:31 AST 44 U/L (17-59) 09/03/18 10:31 ALT 37 U/L (21-72) 09/03/18 10:31 Alkaline Phosphatase 76 U/L (38-126) 09/03/18 10:31 Troponin I 0.1100 ng/mL (0.00-0.120) 08/29/18 12:50 Total Protein 7.2 g/dL (6.3-8.3) 09/03/18 10:31 Albumin 4.0 g/dL (3.5-5.0) 09/03/18 10:31 Globulin 3.2 gm/dL (2.2-3.9) 09/03/18 10:31 Albumin/Globulin Ratio 1.2 (1.0-2.1) 09/03/18 10:31 Triglycerides 135 mg/dL (0-149) 08/29/18 12:50 Cholesterol 208 mg/dL (0-199) H 08/29/18 12:50 LDL Cholesterol Direct 145 mg/dL (0-129) H 08/29/18 12:50 HDL Cholesterol 45 mg/dL (30-70) 08/29/18 12:50 Vitamin B12 > 1000 pg/mL (239-931) H 08/30/18 17:12 Folate 7.9 ng/mL 08/30/18 17:12 Thyroxine (T4) 7.50 ug/dL (5.5-11.0) 08/29/18 15:25 TSH 3rd Generation 0.08 mIU/L (0.46-4.68) L 08/29/18 15:25 Urine Color Yellow (YELLOW) 08/30/18 04:52 Urine Clarity Hazy (Clear) 08/30/18 04:52 Urine pH 5.0 (5.0-8.0) 08/30/18 04:52 Ur Specific [place] 1.030 (1.003-1.030) 08/30/18 04:52 Urine Protein 2+ mg/dL (NEGATIVE) H 08/30/18 04:52 Urine Glucose (UA) 1+ mg/dL (Normal) H 08/30/18 04:52 Urine Ketones Negative mg/dL (NEGATIVE) 08/30/18 04:52 Urine Blood Negative (NEGATIVE) 08/30/18 04:52 Urine Nitrate Negative (NEGATIVE) 08/30/18 04:52 Urine Bilirubin Negative (NEGATIVE) 08/30/18 04:52 Urine Urobilinogen Normal mg/dL (0.2-1.0) 08/30/18 04:52 Ur Leukocyte Esterase Trace Candi/uL (Negative) 08/30/18 04:52 Urine WBC (Auto) 5 /hpf (0-5) 08/30/18 04:52 Urine RBC (Auto) 1 /hpf (0-3) 08/30/18 04:52 Ur Squamous Epith Cells 1 /hpf (0-5) 08/30/18 04:52 Influenza Typ A,B (EIA) Negative for flu a/b (NEGATIVE) 08/30/18 02:11 Blood Type O POSITIVE 08/29/18 12:50 Antibody Screen Negative 08/29/18 12:50 - Hospital Course Hospital Course: HPI: Patient is a 77 year old male with a past medical history of diabetes and Alzheimer dementia, who presents to the hospital with right sided weakness, slurred speech and right facial droop. The history is provided by and daughter who are at bedside due to patients dementia. Per the family, the patient had difficulty sleeping last night, then the noticed slurred speech and facial droop around 6am this morning. The tried to get the patient out of bed at 930am and the patient wasn't able to get out of bed due to right sided arm and leg weakness. Per the , the patients arm movement improved around 1030 am and after that is when they came to the hospital. Review of systems limited due to patients dementia. Patient is oriented to person, but not place or time. During course of admission: No slurred speech or facial droop was noted on physical exam. Neurology (Dr. Crawford) was consulted and the following imaging was obtained, demonstrating no acute intracranial pathology. -CT head without contrast: No acute intracranial abnormality.If there is a persistent focal neurologic deficit and an ongoing clinical concern for acute infarction, an MRI of the brain without intravenous contrast would be a more sensitive modality for evaluation of hyperacute/acute ischemic infarction. 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 -Head/Neck CTA: No evidence of endoluminal thrombus,occlusion or definite significant stenosis in the intracranial arteries. No evidence of hemodynamically significant stenosis in the internal carotid arteries. Patent bilateral vertebral arteries. -MRI brain: moderate diffuse chronic periventricular white matter ischemic changes extending into deep and subcortical white matter. Multiple discrete chronic appearing infarcts scattered about deep and subcortical white matter as well as b/l basal ganglia and R cerebellum. Minor chronic brainstem ischemic changes also present. 1 hour EEG was obtained and evaluated by Neurology, demonstrating no acute findings. Patient was cleared from Neurological standpoint for acute stroke and instructed to continue all medications, including aspirin and statin therapy. EEG report obtained demonstrated no thrombus findings, with normal ejection fraction and systolic function. Patient was seen and evaluated by Physical therapy, who recommended patient would benefit from continued rehabilitation. Patient is medically stable for discharge to [facility], as per Dr. Boone. Patient is instructed to take all medications as currently prescribed, including Aspirin and Crestor. If symptoms worsen or persist, please return to ED immediately. The following is a summary of hospital course. For full detail, please refer to EMR. - Date & Time of H&P Date of H&P: 09/03/18 Time of H&P: 13:48 Discharge Exam - Head Exam Head Exam: ATRAUMATIC, NORMAL INSPECTION, NORMOCEPHALIC - Eye Exam Eye Exam: EOMI, Normal appearance, PERRL Pupil Exam: NORMAL ACCOMODATION - ENT Exam ENT Exam: Mucous Membranes Moist, Normal Exam - Neck Exam Neck exam: Full Rom, Normal Inspection - Respiratory Exam Respiratory Exam: Clear to PA & Lateral, NORMAL BREATHING PATTERN, UNREMARKABLE. absent: Accessory Muscle Use, Rales, Rhonchi, Wheezes, Respiratory Distress, Stridor - Cardiovascular Exam Cardiovascular Exam: REGULAR RHYTHM, +S1, +S2 - GI/Abdominal Exam GI & Abdominal Exam: Normal Bowel Sounds, Soft, Unremarkable. absent: Distended, Firm, Guarding, Rebound, Rigid, Tenderness - Extremities Exam Extremities exam: normal capillary refill, normal inspection, pedal pulses present - Back Exam Back exam: NORMAL INSPECTION - Neurological Exam Neurological exam: Alert, CN II-XII Intact Additional comments: baseline confusion RUE motor strength 3/5, 5/5 elsewhere - Skin Skin Exam: Dry, Intact, Normal Color, Warm Discharge Plan - Follow Up Plan Condition: FAIR Disposition: REHAB FACILITY/REHAB UNIT Instructions: Heart Healthy Diet, Stroke (DC) Additional Instructions: Patient is medically stable for discharge to [facility], as per Dr. Boone. Patient is instructed to take all medications as currently prescribed, including Aspirin and Crestor. If symptoms worsen or persist, please return to ED immediately. <Lewis Boone - Last Filed: 09/03/18 14:48> Provider - Provider Date of Admission: 08/29/18 13:58 Attending physician: Lewis Boone DO Consults: 08/29/18 12:43 Stroke Team Consult Stat Comment: Consulting Provider: Neurohospitalist Consulting Physician: NEUROHOSP Neurohospitalist for Consult: Eric Crawford Neurohospitalist for Consult: Fito Nick Reason for Consult: weakness 08/29/18 15:03 Case Management Referral Routine Comment: Physician Instructions: Reason For Exam: Reason for Referral: Shuttleless Loom Weaver [facility] Course - Lab Results Lab Results: Micro Results 08/29/18 14:00 Blood-Venous Blood Culture - Preliminary NO GROWTH AFTER 4 DAYS 08/29/18 13:00 Blood-Venous Blood Culture - Preliminary NO GROWTH AFTER 4 DAYS 08/30/18 04:52 Urine,Clean Catch Urine Culture - Final No Growth (<1,000 CFU/ML) Most Recent Lab Values WBC 7.2 K/uL (4.8-10.8) 09/03/18 10:31 RBC 3.86 Mil/uL (4.40-5.90) L 09/03/18 10:31 Hgb 11.6 g/dL (12.0-18.0) L 09/03/18 10:31 Hct 35.1 % (35.0-51.0) 09/03/18 10:31 MCV 91.0 fL (80.0-94.0) 09/03/18 10:31 MCH 30.1 pg (27.0-31.0) 09/03/18 10:31 MCHC 33.1 g/dL (33.0-37.0) 09/03/18 10:31 RDW 13.2 % (11.5-14.5) 09/03/18 10:31 Plt Count 296 K/uL (130-400) 09/03/18 10:31 MPV 8.0 fL (7.2-11.7) 09/03/18 10:31 Neut % (Auto) 63.0 % (50.0-75.0) 09/03/18 10:31 Lymph % (Auto) 20.4 % (20.0-40.0) 09/03/18 10:31 [place] % (Auto) 9.5 % (0.0-10.0) 09/03/18 10:31 Eos % (Auto) 6.7 % (0.0-4.0) H 09/03/18 10:31 Baso % (Auto) 0.4 % (0.0-2.0) 09/03/18 10:31 Neut # (Auto) 4.5 K/uL (1.8-7.0) 09/03/18 10:31 Lymph # (Auto) 1.5 K/uL (1.0-4.3) 09/03/18 10:31 [place] # (Auto) 0.7 K/uL (0.0-0.8) 09/03/18 10:31 Eos # (Auto) 0.5 K/uL (0.0-0.7) 09/03/18 10:31 Baso # (Auto) 0.0 K/uL (0.0-0.2) 09/03/18 10:31 Neutrophils % (Manual) 72 % (50-75) 08/30/18 08:31 Band Neutrophils % 7 % (0-2) H 08/30/18 08:31 Lymphocytes % (Manual) 6 % (20-40) L 08/30/18 08:31 Reactive Lymphs % 3 % (0-0) H 08/30/18 08:31 Monocytes % (Manual) 12 % (0-10) H 08/30/18 08:31 Eosinophils % (Manual) TEST NOT PERFORMED 08/29/18 12:50 Platelet Estimate Normal (NORMAL) 08/30/18 08:31 Large Platelets Present 08/29/18 12:50 RBC Morphology Normal 08/29/18 12:50 Anisocytosis (manual) Slight 08/30/18 08:31 PT 12.8 SECONDS (9.7-12.2) H 08/29/18 12:50 INR 1.2 08/29/18 12:50 APTT 31 SECONDS (21-34) 08/29/18 12:50 Sodium 136 mmol/L (132-148) 09/03/18 10:31 Potassium 4.2 mmol/L (3.6-5.2) 09/03/18 10:31 Chloride 99 mmol/L (98-107) 09/03/18 10:31 Carbon Dioxide 33 mmol/L (22-30) H 09/03/18 10:31 Anion Gap 9 (10-20) L 09/03/18 10:31 BUN 14 mg/dL (9-20) 09/03/18 10:31 Creatinine 1.0 mg/dL (0.8-1.5) 09/03/18 10:31 Est GFR ( Amer) > 60 09/03/18 10:31 Est GFR (Non-Af Amer) > 60 09/03/18 10:31 POC Glucose (mg/dL) 404 mg/dL (65-110) H* 09/03/18 10:54 Random Glucose 417 mg/dL (75-110) H* D 09/03/18 10:31 Hemoglobin A1c 8.0 % (4.2-6.5) H 08/29/18 12:50 Lactic Acid 0.9 mmol/L (0.7-2.1) 08/30/18 02:15 Calcium 8.7 mg/dl (8.6-10.4) 09/03/18 10:31 Phosphorus 3.2 mg/dL (2.5-4.5) 09/03/18 10:31 Magnesium 1.6 mg/dL (1.6-2.3) 09/03/18 10:31 Total Bilirubin 0.4 mg/dL (0.2-1.3) 09/03/18 10:31 AST 44 U/L (17-59) 09/03/18 10:31 ALT 37 U/L (21-72) 09/03/18 10:31 Alkaline Phosphatase 76 U/L (38-126) 09/03/18 10:31 Troponin I 0.1100 ng/mL (0.00-0.120) 08/29/18 12:50 Total Protein 7.2 g/dL (6.3-8.3) 09/03/18 10:31 Albumin 4.0 g/dL (3.5-5.0) 09/03/18 10:31 Globulin 3.2 gm/dL (2.2-3.9) 09/03/18 10:31 Albumin/Globulin Ratio 1.2 (1.0-2.1) 09/03/18 10:31 Triglycerides 135 mg/dL (0-149) 08/29/18 12:50 Cholesterol 208 mg/dL (0-199) H 08/29/18 12:50 LDL Cholesterol Direct 145 mg/dL (0-129) H 08/29/18 12:50 HDL Cholesterol 45 mg/dL (30-70) 08/29/18 12:50 Vitamin B12 > 1000 pg/mL (239-931) H 08/30/18 17:12 Folate 7.9 ng/mL 08/30/18 17:12 Thyroxine (T4) 7.50 ug/dL (5.5-11.0) 08/29/18 15:25 TSH 3rd Generation 0.08 mIU/L (0.46-4.68) L 08/29/18 15:25 Urine Color Yellow (YELLOW) 08/30/18 04:52 Urine Clarity Hazy (Clear) 08/30/18 04:52 Urine pH 5.0 (5.0-8.0) 08/30/18 04:52 Ur Specific [place] 1.030 (1.003-1.030) 08/30/18 04:52 Urine Protein 2+ mg/dL (NEGATIVE) H 08/30/18 04:52 Urine Glucose (UA) 1+ mg/dL (Normal) H 08/30/18 04:52 Urine Ketones Negative mg/dL (NEGATIVE) 08/30/18 04:52 Urine Blood Negative (NEGATIVE) 08/30/18 04:52 Urine Nitrate Negative (NEGATIVE) 08/30/18 04:52 Urine Bilirubin Negative (NEGATIVE) 08/30/18 04:52 Urine Urobilinogen Normal mg/dL (0.2-1.0) 08/30/18 04:52 Ur Leukocyte Esterase Trace Candi/uL (Negative) 08/30/18 04:52 Urine WBC (Auto) 5 /hpf (0-5) 08/30/18 04:52 Urine RBC (Auto) 1 /hpf (0-3) 08/30/18 04:52 Ur Squamous Epith Cells 1 /hpf (0-5) 08/30/18 04:52 Influenza Typ A,B (EIA) Negative for flu a/b (NEGATIVE) 08/30/18 02:11 Blood Type O POSITIVE 08/29/18 12:50 Antibody Screen Negative 08/29/18 12:50 Attending/Attestation - Attestation I have personally seen and examined this patient.: Yes I have fully participated in the care of the patient.: Yes I have reviewed all pertinent clinical information, including history, physical exam and plan: Yes Notes (Text): 09/03/18 14:42 Medical attending: Patient was seen and examined by me. Agree with the above note by the resident The patient is pending going to [facility] hopefully today As mentioned previously the patient appears he has some dementia at baseline, however he is alert and able to follow some simple commands in Thai He has had an echo done as well and this did not show any acute findings at this time He should continue with the ASA as well as Statin medications Lewis Boone
[2018-09-03 16:43] VITALS: PULSE 73; TEMP 97.9; O2SAT 99
[2018-09-03 18:12] VITALS: BP 140/77
== END 2018-09-03 21:18 | DRG 948 ==
LOC: C.ER 12:36 → C.9E 13:58 → C.6T 16:03
PROVIDERS: ADMIT Hospitalist; ATTEND Hospitalist
DX: R53.1 Weakness (principal); R47.81 Slurred speech; R29.810 Facial weakness; F02.80 Dementia in other diseases classified elsewhere, unspecified severity, without behavioral disturbance, psychotic disturbance, mood disturbance, and anxiety; G30.9 Alzheimer's disease, unspecified; Z79.82 Long term (current) use of aspirin; I10 Essential (primary) hypertension; Z87.891 Personal history of nicotine dependence; Z86.73 Personal history of transient ischemic attack (TIA), and cerebral infarction without residual deficits